=== PATIENT | female | born 1940 | race Caucasian/White ===

== ENCOUNTER → 2016-09-30 | Outpatient (CLI) | payer OTHER ==
[~2016-09-30] MED LIST: ACAMPROSATE CA333 MG PO; ADULT LOW DOSE81 MG PO; AMBIEN 5 MG TABL5 M1 PO; ANTABUSE250 M1 PO; ASPIR 8181 MG PO; CALCIUM 600 +1 EAC1 PO; CELEXA 20 MG TA20 M1 PO; COLACE100 MG PO; ENDOCET 5-3251 EACH PO; ENOXAPARIN40 MG/0.1 SUBQ; K-DUR 20 MEQ T20 MEQ PO; LEVOTHYROXINE0.05 MG PO; MIRALAX17 GM PO; OMEPRAZOLE 20 M20 M1 PO; PERCOCET 5-3251 EACH PO; PHENERGAN 25 MG25 M1 PO; PROMS25 WY RECTAL; PROPRANOLOL 1010 MG PO; PROTONIX40 M2 PO; PROTONIX40 M4 PO; SENNA CONCENTR8.6 MG PO; SENNA8.6 MG PO; SENOKOT-S1 TA1 PO; TYLENOL325 MG PO; VITAMINC500 PO; ZOFRAN4 MG PO
== END ==
LOC: ULTRA 07:32
DX: R79.89 Other specified abnormal findings of blood chemistry (principal); M79.89 Other specified soft tissue disorders; M79.604 Pain in right leg; M79.605 Pain in left leg

== ENCOUNTER → 2016-11-18 | Outpatient (CLI) | payer OTHER ==
[2016-11-18 08:14] LABS: CREATININE 0.8 mg/dL (0.6-1.0)
== END ==
LOC: CAT 07:16
PROVIDERS: Family Medicine
DX: K70.30 Alcoholic cirrhosis of liver without ascites (principal); R06.02 Shortness of breath; R79.1 Abnormal coagulation profile

== ENCOUNTER → 2016-12-16 | Outpatient (CLI) | payer OTHER ==
[~2016-12-16] VITALS: Ht 167.6 cm; Wt 72.6 kg
[~2016-12-16] MED LIST changes: +ALDACTONE50 MG PO; +LACTULOSE10 GM/152 PO
--- NOTE | ~2016-12-16 | P ---
[facility] [place] [address] PROCEDURE REPORT Name: OLIVIA BRADLEY Room #: REG [facility]#: [id number] Admission: 12/16/16 Attend Phys: Chapo Montoya MD Discharge: Date of : 39 Report #: [id number] THIS REPORT FOR: //name// CC: Chapo Peraza MD OUTPATIENT UPPER ENDOSCOPY DATE OF SERVICE: 12/16/2016. BRIEF HISTORY: The patient is a 76-year-old woman with known cirrhosis of liver and portal hypertension with a history of esophageal varices diagnosed in 2016. She presents today for surveillance of esophagus for esophageal varices and potential banding. PREOPERATIVE DIAGNOSIS: 1. Portal hypertension. 2. Esophageal varices. POSTOPERATIVE DIAGNOSES: 1. Grade 1-2 distal esophageal varices. 2. Small hiatus hernia. 3. Erythematous gastritis. MEDICATIONS: Deep sedation with propofol per anesthesia. SPECIMEN: None. ESTIMATED BLOOD LOSS: None. PROCEDURE: Esophagogastroduodenoscopy. FINDINGS: Prior to propofol sedation, procedure of upper endoscopy discussed with the patient as well as potential risks and its complications. She indicates she understands and desires to proceed. DESCRIPTION OF PROCEDURE: With the patient in left lateral decubitus position, the Fuji video endoscope was inserted in the cervical esophagus under direct vision without difficulty. Examination of this organ through its entire length revealed normal esophageal mucosa in the proximal esophagus distally, as we advanced the scope, she was noted to have varices in the distal esophagus, with the most part, the varices a grade 1. However, right at the GE junction, there were 2 columns that I would consider grade 2 but these were apparently short varices. It was felt that, that they were not amenable to banding at this point in time. They are best seen when air was suctioned from the esophagus. However, the esophagus fully distended, they were barely perceptible. There is no [facility] [address] [address] PROCEDURE REPORT Name: OLIVIA BRADLEY Room #: REG [facility]#: [id number] Admission: 12/16/16 Attend Phys: Chapo Montoya MD Discharge: Date of : 39 Report #: [id number] evidence of bleeding. In addition, a small hiatus hernia was seen. The mucosa in the hernia was normal. Scope was advanced in the stomach, which was examined on end view as well as retroflexed views. There was linear erythema in the antrum of stomach, no ulcers were seen. Upon retroflexion, the hiatus hernia was seen, no mass lesions were seen. The stomach was fully insufflated with air. There was good flattening of the gastric folds and gastric varices were not identified. At that point, the scope was slowly withdrawn and careful circumferential views confirmed the above findings. The patient tolerated the procedure well. CONDITION OF THE PATIENT UPON DISCHARGE: Following procedure, the patient drowsy, aroused, conversant and will be discharged home when fully ambulatory. INSTRUCTIONS TO THE PATIENT AND FAMILY AT THE TIME OF DISCHARGE: She does have varices and they are fairly small this point in time and felt not be amenable to banding. She will continue her current treatment with Aldactone, lactulose, and she may need furosemide if needed. We will have her return, she has an appointment in the office in several weeks. Suggest she return in 1 year for surveillance endoscopy for evaluation of her esophageal varices. <ELECTRONICALLY SIGNED> By: Chapo Montoya MD 12/17/16 1151 0859 1127 Chapo Montoya MD /nt
== END ==
LOC: GI 07:24 → EDSTATUS 09:08
DX: I85.10 Secondary esophageal varices without bleeding (principal); K76.6 Portal hypertension; K29.60 Other gastritis without bleeding; K44.9 Diaphragmatic hernia without obstruction or gangrene; F32.9 Major depressive disorder, single episode, unspecified; K21.9 Gastro-esophageal reflux disease without esophagitis; M19.90 Unspecified osteoarthritis, unspecified site; K74.60 Unspecified cirrhosis of liver
CPT/HCPCS: 62110; 62900

== ENCOUNTER 2017-03-19 13:56 | Inpatient (IN) | payer OTHER ==
[~2017-03-19] VITALS: Ht 167.6 cm; Wt 77.1 kg
--- NOTE | ~2017-03-19 | EKG ---
[place] [address] [address] [place] [address] ELECTROCARDIOGRAM REPORT Name: OLIVIA BRADLEY Room #: 432-P ADM IN M.R.#: [id number] Admission: 03/19/17 Attend Phys: Zuri Garza Discharge: Date of : 39 Report #: [id number] THIS REPORT FOR: //name// [facility] ED Test Date: 2017-03-19 Test Time: 15:01:18 Pat Name: OLIVIA BRADLEY Department: Room: [facility] Gender: F Academic Affairs Dean: DENNISE : 1940 Requested By: Yamila Gonzalez Order Number: [id number] MD: Spike Ramos Measurements Intervals [place] Rate: 68 P: 40 MO: 176 QRS: -3 QRSD: 102 T: 35 QT: 442 QTc: 471 Interpretive Statements Sinus rhythm Probable left atrial enlargement Low voltage, precordial leads Compared to ECG 07/13/2015 11:59:20 No significant change Electronically Signed On 03-20-2017 10:53:11 CDT by Spike Ramos [email or web address] <ELECTRONICALLY SIGNED> By: Spike Ramos MD 03/20/17 1053 1501 1501 Spike Ramos MD /CANDIDA
--- NOTE | ~2017-03-19 | HC ---
[facility] [place] [address] CONSULTATION Name: OLIVIA BRADLEY Room #: 432-P ADM IN M.R.#: [id number] Admission: 03/19/17 Attend Phys: Zuri Garza Discharge: Date of : 39 Report #: [id number] THIS REPORT FOR: //name// CC: Zuri Peraza MD DATE OF SERVICE: 03/20/2017 HISTORY OF PRESENT ILLNESS: The patient is a 77-year-old female with a history of cirrhosis who was admitted yesterday with complaints of generalized weakness, fatigue, episode of dizziness. She was noted to have an elevated ammonia level on admission. She does take lactulose, but once a day at home. Her ammonia level yesterday was 36, today is 83. Lactulose has now been increased to 4 times a day. She denies any abdominal pain. She was also anemic with a hemoglobin of 9, although she states she has always been anemic and that is her normal baseline range. She denies any obvious melena or bright red blood per rectum. She states she had an EGD by my partner, Dr. Montoya who follows her, last month. I do not have a copy of those results. She also reportedly had a colonoscopy approximately 3 months ago, in which polyps were removed. She denies any abdominal pain. She denies any chest pain or shortness of breath. No fevers or chills at this time. She has a history of alcohol abuse, but last use was a year ago. PAST MEDICAL HISTORY: History of cirrhosis, previous history of alcohol abuse, anemia, ankle fracture, history of depression, hysterectomy, gastroesophageal reflux disease, arthritis. ALLERGIES: CODEINE, MORPHINE, ENTEX. REVIEW OF SYSTEMS: As per HPI. MEDICATIONS ON ADMISSION: Protonix, calcium, Celexa, Synthroid, Inderal, Aldactone and lactulose. SOCIAL HISTORY: Previous history of alcohol abuse, last drink a year ago. She denies any tobacco use. FAMILY HISTORY: Negative for colon cancer. PHYSICAL EXAMINATION: VITAL SIGNS: Temperature is 37.0, pulse 65, blood pressure is 98/47, respiratory rate is 16. GENERAL: She is alert and oriented x 3 in no acute distress. HEENT: Sclerae are nonicteric. Oropharynx is clear. [address] [address] CONSULTATION Name: OLIVIA BRADLEY Room #: 432-P [facility] IN M.R.#: [id number] Admission: 03/19/17 Attend Phys: Zuri Garza Discharge: Date of : 39 Report #: [id number] NECK: Supple without lymphadenopathy. CARDIOVASCULAR: Regular rate and rhythm. CHEST: Clear to auscultation bilaterally. ABDOMEN: Soft. She is nontender, nondistended, normoactive bowel sounds. EXTREMITIES: Trace edema in the lower extremities bilaterally. LABORATORY DATA: Sodium 139, potassium 4.3, chloride 109, bicarbonate 21, BUN 24, creatinine 1.4. Ammonia level is 83. Albumin 2.9. WBC 4.6, hemoglobin 9.0, MCV 79.7, platelet count is 108. UA is nitrite positive, wbc's 6-15, 2+ leukocyte esterase. ASSESSMENT AND PLAN: 1. History of cirrhosis, previous history of alcohol abuse. The patient with recent generalized fatigue, weakness. This may be secondary to elevated ammonia level. Agree with increasing lactulose, which has now been increased to 4 times daily, would repeat ammonia level tomorrow. 2. Anemia. There are no obvious signs of bleeding. She denies any melena or bright red blood per rectum. Reportedly had an esophagogastroduodenoscopy and colonoscopy in the last few months. We will need to obtain copies of these results. We will Hemoccult test stools and monitor hemoglobin at this time. 3. Urinary tract infection. The patient is currently on an antibiotic. Thank you for allowing me to participate in her care. <ELECTRONICALLY SIGNED> By: Timo Odell MD 03/21/17 1151 1124 2211 Timo Odell MD /nt
[2017-03-19 13:57] VITALS: BP 113/45
[2017-03-19 14:40] LABS: URINE BILIRUBIN NEGATIVE (Negative); URINE BLOOD NEGATIVE (Negative); URINE COLOR YELLOW; URINE GLUCOSE-RANDOM* NEGATIVE (Negative); URINE KETONES NEGATIVE (Negative); URINE NITRITE POSITIVE (Negative); URINE PROTEIN (DIPSTICK) NEGATIVE (Negative)
[2017-03-19 14:52] LABS: BACTERIA 1-9 Few /HPF (None Seen); CASTS None Seen /LPF (None Seen); CRYSTALS None Seen /LPF (None Seen); SQUAMOUS 0-3 Few /LPF (0-3); URINE RBC None Seen /HPF (0-2); URINE WBC 6-15 Few /HPF (0-5)
[2017-03-19 15:03] LABS: ABSOLUTE NEUTROPHILS 2.4 thou/uL (1.4-8.2); BASOPHILS 0.5 % (0.0-2.0); HEMATOCRIT 27.4 % (37.0-47.0); LYMPHOCYTES 32.3 % (24.0-44.0); MANUAL DIFF NO; MCH 26.3 pg (26.0-34.0); MCV 79.7 fL (80.0-100.0); MONOCYTES 8.6 % (1.0-8.0); PLATELET COUNT 108 thou/uL (150-400); POLYS 52.6 % (36.0-66.0); RBC 3.44 mil/uL (4.20-5.00); RDW 19.4 % (10.5-14.5); WBC 4.6 thou/uL (4.0-11.0)
[2017-03-19 15:12] LABS: ANION GAP 12 mmol/L (7-16); BUN 31 mg/dL (7-18); CALCIUM 9.2 mg/dL (8.5-10.1); CHLORIDE 108 mmol/L (98-107); CO2 20 mmol/L (21-32); CREATININE 1.6 mg/dL (0.6-1.0); GLUCOSE 147 mg/dL (74-106); POTASSIUM 4.6 mmol/L (3.5-5.1); SODIUM 140 mmol/L (136-145)
[2017-03-19 15:21] LABS: ALBUMIN 3.2 g/dL (3.4-5.0); ALKALINE PHOSPHATASE 83 U/L (46-116); SGOT 32 U/L (15-37); SGPT 22 U/L (30-65); TOTAL BILIRUBIN 1.6 mg/dL (<0.1-1.0); TROPONIN-I < 0.04 ng/mL (<0.04-0.07)
[2017-03-19 16:03] VITALS: BP 111/68
[2017-03-19 16:35] VITALS: BP 113/67
[2017-03-19] MEDS ORDERED: LASIX 20 MG TAB20 MG PO (16:50)
[2017-03-19] MEDS ORDERED: PHENERGAN 25 MG25 M1 PO (16:50)
[2017-03-19 20:00] VITALS: BP 105/46
[2017-03-20 04:14] VITALS: BP 90/44
[2017-03-20 06:22] LABS: ALBUMIN 2.9 g/dL (3.4-5.0); CALCIUM 8.6 mg/dL (8.5-10.1); CREATININE 1.4 mg/dL (0.6-1.0); PHOSPHORUS 4.2 mg/dL (2.5-4.9); POTASSIUM 4.3 mmol/L (3.5-5.1)
[2017-03-20 07:40] VITALS: BP 98/47
[2017-03-20 15:05] VITALS: BP 101/52
[2017-03-20 19:50] VITALS: BP 110/54
[2017-03-21 04:41] VITALS: BP 105/56
[2017-03-21 07:00] LABS: ALBUMIN 2.7 g/dL (3.4-5.0); CALCIUM 8.6 mg/dL (8.5-10.1); PHOSPHORUS 3.3 mg/dL (2.5-4.9); POTASSIUM 4.6 mmol/L (3.5-5.1)
[2017-03-21 08:00] VITALS: BP 118/62
[2017-03-21 08:19] VITALS: BP 118/62
[2017-03-21 16:00] VITALS: BP 102/45
[2017-03-21 20:00] VITALS: BP 109/56
[2017-03-22 04:00] VITALS: BP 120/61
[2017-03-22 04:42] LABS: ALBUMIN 2.5 g/dL (3.4-5.0); CALCIUM 8.6 mg/dL (8.5-10.1); CREATININE 0.9 mg/dL (0.6-1.0); POTASSIUM 4.1 mmol/L (3.5-5.1); TOTAL BILIRUBIN 0.8 mg/dL (<0.1-1.0); TOTAL PROTEIN 5.9 g/dL (6.4-8.2)
[2017-03-22 07:12] VITALS: BP 103/53
[2017-03-22] MEDS ORDERED: LACTULOSE20 GM/30 M PO (09:22)
[2017-03-22 09:55] VITALS: BP 103/53
== END 2017-03-22 14:30 | disposition home or self-care (01) | DRG 441 ==
LOC: ER 13:56 → EROBS 15:59 → 4E 15:59 → ENTRNSPT 03-22 14:21 → EDTRNSPTSTS 03-22 14:24 → 4E 03-22 14:30
PROVIDERS: Hospitalist; Physician Assistant
DX: K72.90 Hepatic failure, unspecified without coma (principal); N17.0 Acute kidney failure with tubular necrosis; N39.0 Urinary tract infection, site not specified; K76.6 Portal hypertension; I85.00 Esophageal varices without bleeding; K21.9 Gastro-esophageal reflux disease without esophagitis; M19.90 Unspecified osteoarthritis, unspecified site; F32.9 Major depressive disorder, single episode, unspecified; D64.9 Anemia, unspecified; F10.10 Alcohol abuse, uncomplicated; Y90.9 Presence of alcohol in blood, level not specified; K70.30 Alcoholic cirrhosis of liver without ascites; K29.60 Other gastritis without bleeding; Z90.710 Acquired absence of both cervix and uterus; Z98.42 Cataract extraction status, left eye; Z98.41 Cataract extraction status, right eye; Z88.6 Allergy status to analgesic agent; Z88.8 Allergy status to other drugs, medicaments and biological substances
CPT/HCPCS: 10084

== ENCOUNTER 2017-09-24 14:40 | Inpatient (IN) | payer OTHER ==
[~2017-09-24] VITALS: Ht 167.6 cm; Wt 76.7 kg
--- NOTE | ~2017-09-24 | HC ---
[facility] [place] [address] CONSULTATION Name: MIRNAOLIVIA Joseph Room #: 220-P [facility] IN M.R.#: [id number] Admission: 09/24/17 Attend Phys: Kike Singletary MD Discharge: 09/27/17 Date of : 39 Report #: [id number] THIS REPORT FOR: //name// CC: Kike Peraza DATE OF SERVICE: 09/25/2017 HISTORY OF PRESENT ILLNESS: This is a 77-year-old female patient who indicates that she is having some difficulty with ambulation about 1 weeks' duration. This is a different history than the patient gave it to Emergency Room physician. There she indicated that she felt dizzy the day before. Her handwriting has also deteriorated for 1 week and she has some nonspecific shaking associated with it, which happened without any lack of consciousness. Her mentation has been slow. She does have a history of alcoholism, but this patient has not has any alcohol for 2 years according to her. Review of systems indicates that she had these kinds of symptoms in the past, but they become better. She does not know what bring them on and what makes them better. She used to drink alcohol heavily, but says she has been done for 2 year. She has a history of hysterectomy and cirrhosis. She had a history of cataract surgery and depression. She had ankle fracture. She denies any history of stroke or seizure. She takes multiple medications including the medication for depression. She denies that there are any new visual symptoms. She denies any chest pain or any new respiratory difficulty, GI, , musculoskeletal, constitutional, dermatological, hematological, throat, allergic, endocrine symptom associated with present symptomatology. She does have a history of depression, but does not feel depressed. Her 14-point review of system was otherwise noncontributory. PAST MEDICAL HISTORY: Positive for cirrhosis and similar symptoms. More detail of that is not there. FAMILY HISTORY: Negative for any hereditary ataxia. SOCIAL HISTORY: She has a history of drinking alcohol, but has not done it for 2-year. PHYSICAL EXAMINATION: Indicate that she is alert, she is responsive, she is oriented to me. Her speech, concentration, fund of knowledge looks what she described as her baseline. She is able to tell me the month, what hospital she is in, and who is the president. Cranial nerve examination 2-12 looks unremarkable. She moves all four extremities. She is somewhat weak in all 4 extremities. Her reflexes are present even in the lower extremities. Her position sense is intact. Her tone looks symmetrical. She can do [id number]. I could not have a very good look at the patient's fundus. She [facility] [address] [place] [address] CONSULTATION Name: OLIVIA BRADLEY Room #: 220-P DIS IN M.R.#: [id number] Admission: 09/24/17 Attend Phys: Kike Singletary MD Discharge: 09/27/17 Date of : 39 Report #: [id number] is moderately built individual. She does not have any dysmorphic features of eyes, ears or face. Her vision and hearing looks adequate. Her pulses are difficult to feel and I do not think there is much edema, cyanosis or jaundice. Cardiac examination is mostly unremarkable. No respiratory difficulty or rhonchi on either side. Her blood pressure is 112/43, respirations 16, pulse is 73, temperature is 98.3. LABORATORY DATA: Indicate that she is anemic with hemoglobin of 10.5. Her GFR is only 43. IMPRESSION: This patient looks like had a CT angiogram in the Emergency Room. Her GFR was 36 and today it is 43 and does not look like that has changed much. 1. This patient has a suggestion of lesion on the left side. If that lesion is real and acute that can explain at least part of the patient's symptoms. We had ordered an MRI, but MRI is not done yet and we will await the MRI. 2. It is possible that part of her symptoms is secondary to hepatic encephalopathy because her ammonia level was high. I will go ahead and give some time and looks like she got some lactulose. 3. It looks like she did have a CT angiogram in the Emergency Room. Her GFR is stable and in fact has improved since yesterday. Hospitalist/plant specialist is already following this patient in that regard. RECOMMENDATIONS: 1. I will check the MRI. 2. I will check the EEG. 3. These are the 2 things I recommended and we will see what it shows. 4. We will get the patient on PT/OT. 5. We will see if the patient improve and if she improves, she may not have to do anything. If she does not, then the further workup will be indicated in this patient. I discussed all of it with the patient and she understands it and she wants to follow this plan. Thank you very much for this referral. <ELECTRONICALLY SIGNED> By: Dexter Alva MD 10/06/17 1355 1605 4847 Dexter Alva MD /nt
--- NOTE | ~2017-09-24 | EKG ---
[place] [address] [facility] [place] [address] ELECTROCARDIOGRAM REPORT Name: OLIVIA BRADLEY Room #: 354-P ADM IN M.R.#: [id number] Admission: 09/24/17 Attend Phys: Kike Singletary MD Discharge: Date of : 39 Report #: [id number] THIS REPORT FOR: //name// [facility] ED Test Date: 2017-09-24 Test Time: 15:16:07 Pat Name: OLIVIA BRADLEY Department: Room: [facility] Gender: F Technical Photographer: FRANKIE : 1940 Requested By: Nan Kent Order Number: [id number] MD: Brandyn Draper Measurements Intervals [place] Rate: 81 P: 40 [place]: 170 QRS: -18 QRSD: 96 T: 11 QT: 399 QTc: 464 Interpretive Statements Sinus rhythm Borderline left axis deviation Poor R wave progression Compared to ECG 03/19/2017 15:01:18 No significant changes Electronically Signed On 09-25-2017 13:45:40 CDT by Brandyn Draper [email or web address] <ELECTRONICALLY SIGNED> By: Brandyn Draper MD, [facility] 09/25/17 1345 1516 1516 Brandyn Draper MD, [facility] /EPI
--- NOTE | ~2017-09-24 | EEG ---
[facility] [place] [address] ELECTROENCEPHALOGRAM Name: OLIVIA BRADLEY Room #: 220-P [facility] IN M.R.#: [id number] Admission: 09/24/17 Attend Phys: Kike Singletary MD Discharge: 09/27/17 Date of : 39 Report #: [id number] THIS REPORT FOR: //name// CC: Kike Peraza DATE OF SERVICE: 09/25/2017 This patient is being evaluated for altered mental status. EEG was done by placing the electrodes by standard 10-20 system of electrode placement. Both referential and sequential montages were used for recording. Background activity in this patient's EEG is about 9-10 Hz and 30-40 microvolts. This patient went to sleep that is associated with bilateral slowing and vertex sharp waves. Even when the patient is awake, some intermixed theta range slowing is noticed. Photic stimulation is unremarkable. Throughout the record, no active epileptiform activity was noticed. IMPRESSION: This patient's EEG is intermixed with some theta range slowing. That is a nonspecific finding, which can occur with encephalopathy, effect of psychotropic medication, dementia, etc. No active epileptiform activity was noticed during this record. Thank you very much for this referral. <ELECTRONICALLY SIGNED> By: Dexter Alva MD 10/06/17 1906 1601 1609 MD floresita Singleton
--- NOTE | ~2017-09-24 | H ---
[facility] [place] [address] HISTORY AND PHYSICAL Name: OLIVIA BRADLEY Room #: 220-P [facility] IN M.R.#: [id number] Admission: 09/24/17 Attend Phys: Kike Singletary MD Discharge: 09/27/17 Date of : 39 Report #: [id number] THIS REPORT FOR: //name// CC: Kike Peraza REASON FOR CONSULTATION: Unsteadiness. HISTORY OF PRESENT ILLNESS: The patient is a 77-year-old with extensive past medical history including and not limited to cirrhosis. She presented describing unsteadiness and wobbly feeling since last night. No falls. No headaches, no fever, no chills. She lives with her . She has felt difficulty finding the words. She also describes some shaky feeling. Her describes slow mental processing and thought process in the last 24 hours. She was supposed to see her primary care physicians, but because of the worsening symptoms, she decided for further evaluation and management. She is not known to have hypertension or diabetes mellitus. She is maintained on cirrhosis medications including Lasix, spironolactone, propranolol. She is also known to have hypothyroidism. She had a similar presentation back in 2017. She never had issues with strokes in the past. She is known to have had extensive GI workup revealing esophageal varices in the past. Initial scans revealed a possible acute ischemic infarct and she is admitted for further evaluation and management. PAST MEDICAL HISTORY: 1. Cirrhosis. 2. Esophageal varices. 3. Remote history of alcohol dependence. 4. Status post hysterectomy. 5. Cataract surgery. 6. Tonsillectomy. 7. Depression. 8. Hiatal hernia. MEDICATIONS: 1. Pantoprazole. 2. Furosemide. 3. Celexa. 4. Levothyroxine 50 mcg. 5. Propranolol 10 mg twice a day. 6. Spironolactone. ALLERGIES: CODEINE, MORPHINE, PSEUDOEPHEDRINE, PHENYLEPHRINE. SOCIAL HISTORY: No drug or alcohol abuse. She is a retired RN. The last time she used alcohol was back in 2016. [facility] [address] [place] [address] HISTORY AND PHYSICAL Name: OLIVIA BRADLEY Room #: 220-P [facility] IN .R.#: [id number] Admission: 09/24/17 Attend Phys: Kike Singletary MD Discharge: 09/27/17 Date of : 39 Report #: [id number] REVIEW OF SYSTEMS: GENERAL: Significant for weakness and malaise. PULMONARY: No cough or hemoptysis. CARDIOVASCULAR: No chest pain or palpitation. GASTROINTESTINAL: No nausea or vomiting. GENITOURINARY: No frequency, no urgency. MUSCULOSKELETAL: No back pain. No muscle aches. SKIN: No rash or ulcerations. NEUROLOGIC: As per the history of present illness. FAMILY HISTORY: Her mom of lung cancer. Dad of a car accident. PHYSICAL EXAMINATION: GENEAL: She is alert and oriented. VITAL SIGNS: Blood pressure was reported to be at 110/60. Pulse ox 99, temperature 36.7, respiratory rate 18. HEAD AND NECK: No jugular venous distention, no bruit, no thyromegaly. CHEST: Clear to auscultation. CARDIOVASCULAR: Regular with no rub. ABDOMEN: Soft, nontender. LOWER EXTREMITIES: No edema. NEUROLOGIC: She is somewhat sluggish. No gross deficit. She seems to have difficulty finding the words. No gross cranial nerve deficit. CT reviewed. LABORATORY DATA: Reviewed. She has an MCV of 77.5, platelet of 124, carbon dioxide of 20, mildly elevated total bilirubin, mildly elevated ammonia. ASSESSMENT, IMPRESSION AND PLAN: 1. Unsteadiness of unknown origin. 2. Abnormal CT of the left periventricular frontal region with decreased attenuation, cannot rule out ischemia. 3. Liver cirrhosis. 4. Thrombocytopenia. 5. Anemia. 6. Hypothyroidism. 7. Admission. 8. Neurology consultation. 9. MRI in the morning. 10. Resume all of [place] [address] HISTORY AND PHYSICAL Name: OLIVIA BRADLEY Room #: 220-P [facility] IN ..#: [id number] Admission: 09/24/17 Attend Phys: Kike Singletary MD Discharge: 09/27/17 Date of : 38 Report #: [id number] 11. Further workup based on the MRI tomorrow. 12. Watch hemoglobin and platelets. <ELECTRONICALLY SIGNED> By: Kike Singletary MD 10/10/17 0637 1738 1759 Kike Singletary MD /nt
--- NOTE | ~2017-09-24 | HC ---
[facility] [place] [address] CONSULTATION Name: OLIVIA BRADLEY Room #: 220-P ADM IN M.R.#: [id number] Admission: 09/24/17 Attend Phys: Kike Singletary MD Discharge: Date of : 39 Report #: [id number] THIS REPORT FOR: //name// CC: Kike Billsbanner INFECTIOUS DISEASE CONSULTATION REASON FOR CONSULTATION: I was asked to evaluate regarding bacteremia in the setting of cirrhosis. HISTORY OF PRESENT ILLNESS: The patient is a 77-year-old with a history of cirrhosis and varices. She has a compensated disease. She noticed acute change in mental status with unsteadiness the day of admission. She was brought in with mild confusion and mental slowing along with unsteadiness. Her cirrhosis is controlled on lactulose, spironolactone, propranolol. She also takes rifaximin. She has had no ascites, but has had esophageal varices. Following admission on 09/24/2017, she has improved. Her unsteadiness has improved. No fever, chills or sweats. No cough or sputum production. No headache. No nausea, vomiting or diarrhea. No dysuria or frequency. No rash. ALLERGIES: CODEINE, MORPHINE, PSEUDOEPHEDRINE, PHENYLEPHRINE. MEDICATIONS: Pantoprazole, Lasix, Celexa, levothyroxine, propranolol, spironolactone, rifaximin p.r.n., lactulose. After admission, she was given a dose of ceftriaxone and vancomycin. PAST MEDICAL HISTORY: Cirrhosis, esophageal varices, alcoholism, hysterectomy, cataract surgery, tonsillectomy, depression, hiatal hernia. FAMILY HISTORY: Lung cancer. SOCIAL HISTORY: Nonsmoker, retired RN. REVIEW OF SYSTEMS: Noted above. PHYSICAL EXAMINATION: VITAL SIGNS: Afebrile, hemodynamically stable. GENERAL: She was alert and cooperative and pleasant, in no acute distress. HEENT: Unremarkable. NECK: Supple. No adenopathy. CHEST: Clear. HEART: Regular without murmur. ABDOMEN: Soft and nontender. No hepatosplenomegaly or mass appreciated. SKIN: Occasional telangiectasia on her chest. [facility] [address] [place] [address] CONSULTATION Name: OLIVIA BRADLEY Room #: 220-P [facility]#: [id number] Admission: 09/24/17 Attend Phys: Kike Singletary MD Discharge: Date of : 39 Report #: [id number] EXTREMITIES: Unremarkable. She had onychomycosis of her right great toenail. LABORATORY STUDIES: Sodium 138, potassium 4.5, bicarbonate 21, creatinine 1.2. AST 41, ALT 33, alkaline phosphatase 77, bilirubin 1.3. INR 1.3. Hemoglobin 10.9, platelet count 79,000, WBC 5.2. Chest x-ray was clear. MRI scan of the head showed atrophy with no acute changes. Blood cultures 1 out of 2 cultures showing coag negative Staph. IMPRESSION: A 77-year-old with cirrhosis and unsteadiness. Unclear if this is related to her underlying liver disease or if she had transient ischemia issue. The coag negative Staph in the blood currently appears to be a contaminant. We will need to await final culture results. We will obtain identification of the organism. The patient has received one dose of vancomycin. With no fever or leukocytosis, we will plan to discontinue her antibiotics and observe. <ELECTRONICALLY SIGNED> By: Miguel Ángel Diaz MD 09/27/17 0831 1405 1425 Miguel Ángel Diaz MD /nt
[~2017-09-24 14:40] MED LIST changes: +LACTULOSE20 GM/30 M PO; +LASIX 20 MG TAB20 MG PO
[2017-09-24 15:50] LABS: HEMATOCRIT 34.6 % (37.0-47.0); HEMOGLOBIN 11.3 gm/dL (12.0-15.0); MCH 25.3 pg (26.0-34.0); MCHC 32.6 g/dL (28.0-37.0); MCV 77.5 fL (80.0-100.0); PLATELET COUNT 124 thou/uL (150-400); RBC 4.47 mil/uL (4.20-5.00); RDW 34.4 % (10.5-14.5); WBC 6.2 thou/uL (4.0-11.0)
[2017-09-24 15:55] LABS: ANION GAP 13 mmol/L (7-16); BUN 18 mg/dL (7-18); CALCIUM 9.6 mg/dL (8.5-10.1); CHLORIDE 108 mmol/L (98-107); CO2 20 mmol/L (21-32); CREATININE 1.4 mg/dL (0.6-1.0); GLUCOSE 135 mg/dL (74-106); POTASSIUM 4.9 mmol/L (3.5-5.1); SODIUM 141 mmol/L (136-145)
[2017-09-24 15:56] LABS: URINE BILIRUBIN NEGATIVE (Negative); URINE BLOOD 2+ (Negative); URINE CLARITY CLEAR; URINE COLOR YELLOW; URINE GLUCOSE-RANDOM* NEGATIVE (Negative); URINE KETONES NEGATIVE (Negative); URINE LEUKOCYTES 1+ (Negative); URINE NITRITE NEGATIVE (Negative); URINE PROTEIN (DIPSTICK) NEGATIVE (Negative); URINE SPECIFIC GRAVITY 1.015 (1.005-1.035); URINE UROBILINOGEN 0.2 E.U./dl (0.2-1.0)
[2017-09-24 16:01] LABS: HYALINE CASTS 0-3 Few /LPF (None Seen); SQUAMOUS 4-10 Moderate /LPF (0-3)
[2017-09-24 16:01] LABS: BE(vivo) -8.6 mmol/L (-2 to +3); HCO3 17.3 mmol/L (22.0-26.0); PCO2 VENOUS 37.5 mmHg (41.0-51.0)
[2017-09-24 16:02] LABS: AMP/METHAMP Negative (Negative); BACTERIA 1-9 Few /HPF (None Seen); BARBITURATES Negative (Negative); BENZODIAZEPINES Negative (Negative); COCAINE Negative (Negative); CRYSTALS None Seen /LPF (None Seen); METHADONE Negative (Negative); OPIATES Negative (Negative); PCP Negative (Negative); URINE RBC 3-10 Few /HPF (0-2); URINE WBC 6-15 Few /HPF (0-5)
[2017-09-24 16:04] LABS: ALBUMIN 3.2 g/dL (3.4-5.0); SGOT 47 U/L (15-37); SGPT 37 U/L (30-65); TOTAL BILIRUBIN 2.1 mg/dL (<0.1-1.0); TROPONIN-I < 0.04 ng/mL (<0.06)
[2017-09-24 16:10] LABS: ABSOLUTE NEUTROPHILS 2.9 thou/uL (1.4-8.2); ANISOCYTOSIS 2+; MICROCYTES 2+; PLATELET ESTIMATE NORMAL
[2017-09-24 17:44] LABS: APTT 29.6 Seconds (24.5-32.8); INR 1.3; PROTIME 12.9 Seconds (9.3-11.4)
[2017-09-24 18:53] VITALS: BP 139/70
[2017-09-24 19:08] VITALS: BP 133/50
[2017-09-25] VITALS (7 sets, daily range): BP systolic 96–116; BP diastolic 41–51
[2017-09-25 07:01] LABS: HEMATOCRIT 31.4 % (37.0-47.0); HEMOGLOBIN 10.5 gm/dL (12.0-15.0); MCH 25.8 pg (26.0-34.0); MCHC 33.4 g/dL (28.0-37.0); MCV 77.1 fL (80.0-100.0); RBC 4.08 mil/uL (4.20-5.00); RDW 34.4 % (10.5-14.5); WBC 4.9 thou/uL (4.0-11.0)
[2017-09-25 07:20] LABS: ALBUMIN 2.7 g/dL (3.4-5.0); CREATININE 1.2 mg/dL (0.6-1.0); POTASSIUM 4.5 mmol/L (3.5-5.1); TOTAL BILIRUBIN 1.3 mg/dL (<0.1-1.0); TOTAL PROTEIN 6.1 g/dL (6.4-8.2)
[2017-09-25 07:51] LABS: FOLIC ACID 18.5 ng/mL (8.6-58.9); TSH 0.289 uIU/mL (0.358-3.740)
[2017-09-25 10:39] LABS: CHOLESTEROL 122 mg/dL (<200); HDL CHOLESTEROL 42 mg/dL (>40); LDL CHOLESTEROL 68 mg/dL (<100); SERUM ASSESSMENT Clear; TC:HDL 2.9 Ratio (Not establshd); TRIGLYCERIDE 64 mg/dL (<150); VLDL 13 mg/dL (<40)
[2017-09-26 03:30] VITALS: BP 100/39
[2017-09-26 05:53] LABS: HEMOGLOBIN 10.9 gm/dL (12.0-15.0); MCH 25.5 pg (26.0-34.0); MCV 77.4 fL (80.0-100.0); RBC 4.26 mil/uL (4.20-5.00); RDW 34.4 % (10.5-14.5); WBC 5.2 thou/uL (4.0-11.0)
[2017-09-26 07:28] VITALS: BP 106/52
[2017-09-26 12:16] VITALS: BP 99/45
[2017-09-26 20:30] VITALS: BP 118/52
[2017-09-27 07:47] VITALS: BP 120/65
[2017-09-27 07:52] LABS: ABSOLUTE NEUTROPHILS 1.9 thou/uL (1.4-8.2); BASOPHILS 0.3 % (0.0-2.0); EOSINOPHILS 6.7 % (0.0-3.0); HEMATOCRIT 33.3 % (37.0-47.0); LYMPHOCYTES 42.4 % (24.0-44.0); MCH 25.5 pg (26.0-34.0); MCHC 33.2 g/dL (28.0-37.0); MCV 76.9 fL (80.0-100.0); MONOCYTES 10.9 % (1.0-8.0); POLYS 39.7 % (36.0-66.0); RBC 4.33 mil/uL (4.20-5.00); RDW 33.6 % (10.5-14.5); WBC 4.8 thou/uL (4.0-11.0)
[2017-09-27 07:58] LABS: CALCIUM 9.4 mg/dL (8.5-10.1); CREATININE 1.1 mg/dL (0.6-1.0); POTASSIUM 4.6 mmol/L (3.5-5.1)
[2017-09-27 08:21] LABS: ANISOCYTOSIS 1+
[2017-09-27 08:22] LABS: PLATELET COUNT 85 thou/uL (150-400)
[2017-09-27 13:41] VITALS: BP 120/65
[2018-02-22] MEDS ORDERED: LACTULOSE20 GM/30 M PO (14:24)
[2018-02-22] MEDS ORDERED: XIFAXAN550 M1 PO (14:26)
== END 2017-09-27 14:40 | disposition home or self-care (01) | DRG 441 ==
LOC: ER 14:40 → EROBS 17:10 → 3W 17:10 → SICU 09-26 14:10 → ENTRNSPT 09-27 14:16 → EDTRNSPTSTS 09-27 14:20 → SICU 09-27 14:40
PROVIDERS: Hospitalist; Physician Assistant
PROC: 4A00X4Z Measurement of Central Nervous Electrical Activity, External Approach (ICD-10-PCS; principal; 2017-09-26)
DX: K72.90 Hepatic failure, unspecified without coma (principal); E43 Unspecified severe protein-calorie malnutrition; N39.0 Urinary tract infection, site not specified; K21.9 Gastro-esophageal reflux disease without esophagitis; M19.90 Unspecified osteoarthritis, unspecified site; D69.6 Thrombocytopenia, unspecified; D64.9 Anemia, unspecified; E03.9 Hypothyroidism, unspecified; K74.60 Unspecified cirrhosis of liver; F32.9 Major depressive disorder, single episode, unspecified; R26.0 Ataxic gait; Z68.27 Body mass index [BMI] 27.0-27.9, adult; Z87.81 Personal history of (healed) traumatic fracture; Z98.42 Cataract extraction status, left eye; Z98.41 Cataract extraction status, right eye; Z90.49 Acquired absence of other specified parts of digestive tract; Z79.899 Other long term (current) drug therapy; Z88.5 Allergy status to narcotic agent; Z88.8 Allergy status to other drugs, medicaments and biological substances; Z80.1 Family history of malignant neoplasm of trachea, bronchus and lung
CPT/HCPCS: 10879; 15002

== ENCOUNTER → 2017-10-12 | Outpatient (CLI) | payer OTHER | LOC: RAD 06:25 → SPEECH 06:25 → RAD 08:37 → EDSTATUS 09:18 → RAD 09:19 | DX: K80.20 Calculus of gallbladder without cholecystitis without obstruction (principal); K74.60 Unspecified cirrhosis of liver; R13.12 Dysphagia, oropharyngeal phase ==

== ENCOUNTER → 2018-02-24 | Outpatient (CLI) | payer OTHER ==
[~2018-02-24] VITALS: Ht 167.6 cm; Wt 74.8 kg
[~2018-02-24] MED LIST changes: +XIFAXAN550 M1 PO
--- NOTE | ~2018-02-24 | P ---
[facility] [place] [address] PROCEDURE REPORT Name: OLIVIA BRADLEY Room #: REG [facility]#: [id number] Admission: 02/24/18 Attend Phys: Chapo Montoya MD Discharge: Date of : 39 Report #: [id number] THIS REPORT FOR: //name// CC: Chapo Peraza MD DATE OF SERVICE: 02/24/2018 BRIEF HISTORY: The patient is a 78-year-old woman with a known history of cirrhosis of liver and esophageal varices for surveillance of esophageal varices for potential banding. PREOPERATIVE DIAGNOSIS: Esophageal varices. POSTOPERATIVE DIAGNOSES: 1. Grade 1 esophageal varices. 2. Erythematous antral gastritis. 3. Small hiatus hernia. MEDICATIONS: Deep sedation with propofol per anesthesia. SPECIMEN: None. ESTIMATED BLOOD LOSS: None. PROCEDURE: EGD. FINDINGS: Prior to propofol sedation, procedure of upper endoscopy and potential banding of varices was discussed with the patient as well as potential risks, benefits, and complications. She indicates she understands and desires to proceed. DESCRIPTION OF PROCEDURE: With the patient in lateral decubitus position, the Olympus video endoscope was inserted in the cervical esophagus under direct vision without difficulty. Examination of this organ through its entire length revealed normal esophageal mucosa down to the distal esophagus. The GE junction was inspected and it was noted to be intact without evidence of ulcers or erosions or esophagitis. The distal esophagus was then inspected for esophageal varices. Intermittently, grade 1 varices were seen. However, when we inflated the esophagus, they flattened out completely and at that point were not visible. It was felt that these were too small and a band would not hold on these varices because of their size. Stigmata of bleeding was not identified. The scope was advanced and a very small hiatus hernia was encountered. The mucosa in the hernia was unremarkable. The scope was advanced in the stomach, was examined on end view, as well as retroflexed views. There was a pattern of [facility] [address] [place] [address] PROCEDURE REPORT Name: OLIVIA BRADLEY Room #: REG [facility]..#: [id number] Admission: 02/24/18 Attend Phys: Chapo Montoya MD Discharge: Date of : 39 Report #: [id number] patchy erythema in the antrum, but no ulcers or erosions were seen. Upon retroflexion, a small hiatus hernia was seen. No mass lesions were seen. Gastric varices were not seen. The pylorus was unremarkable. The duodenal bulb was unremarkable. The postbulbar and duodenal sweep down to the third portion was unremarkable. At that point, the scope was slowly withdrawn and careful circumferential views confirmed the above findings. The patient tolerated the procedure well. CONDITION OF THE PATIENT UPON DISCHARGE: Following procedure, the patient was drowsy, arousal, and conversant and will be discharged home when fully ambulatory. In the dome. INSTRUCTIONS TO THE PATIENT AND FAMILY AT THE TIME OF DISCHARGE: The patient has early varices, which were deemed to be too small to hold a band. We will have her return in 1 year for repeat endoscopy. We will have her return to see me in followup in the office in about 6 to 8 weeks. She will otherwise return in the care of Dr. Lucio Peraza. <ELECTRONICALLY SIGNED> By: Chapo Montoya MD 02/24/18 1740 [id number] Chapo Montoya MD /nt
== END | disposition home or self-care (01) ==
LOC: GI 06:28
DX: K74.60 Unspecified cirrhosis of liver (principal); I85.10 Secondary esophageal varices without bleeding; K29.70 Gastritis, unspecified, without bleeding; K44.9 Diaphragmatic hernia without obstruction or gangrene; K21.9 Gastro-esophageal reflux disease without esophagitis; M19.90 Unspecified osteoarthritis, unspecified site; D64.9 Anemia, unspecified; F32.9 Major depressive disorder, single episode, unspecified; Z90.710 Acquired absence of both cervix and uterus; Z98.41 Cataract extraction status, right eye; Z98.42 Cataract extraction status, left eye; Z98.890 Other specified postprocedural states; Z79.899 Other long term (current) drug therapy; Z88.8 Allergy status to other drugs, medicaments and biological substances; Z88.6 Allergy status to analgesic agent
CPT/HCPCS: 62110; 62900

== ENCOUNTER → 2018-04-17 | Outpatient (CLI) | payer OTHER | LOC: ULTRA 07:55 | DX: K80.20 Calculus of gallbladder without cholecystitis without obstruction (principal); K70.30 Alcoholic cirrhosis of liver without ascites; R16.1 Splenomegaly, not elsewhere classified ==

== ENCOUNTER → 2019-02-16 | Outpatient (CLI) | payer OTHER ==
[~2019-02-16] VITALS: Ht 170.2 cm; Wt 65.8 kg
[~2019-02-16] MED LIST changes: +SPIRONOLACTONE100 M1 PO
--- NOTE | 2019-02-17 10:48 | P ---
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 She presents for screening for esophageal varices. Last screening was about a year ago. PREOPERATIVE DIAGNOSES: Advanced liver disease with portal hypertension and esophageal varices. POSTOPERATIVE DIAGNOSES: 1. Grade 1 esophageal varices. 2. Small hiatus hernia. 3. Mild diffuse gastritis. 4. Mild Schatzki ring. MEDICATIONS: Deep sedation with propofol per anesthesia. SPECIMENS: None. ESTIMATED BLOOD LOSS: None. PROCEDURE: EGD. FINDINGS: Prior to propofol sedation, the procedure of upper endoscopy and potential banding of varices was discussed with the patient as well as potential risks and its complications. She indicates she understands and desires to proceed. DESCRIPTION OF PROCEDURE: With the patient in left lateral decubitus position, the Olympus video endoscope was inserted in the cervical esophagus under direct vision without difficulty. Examination of this organ through its entire length revealed normal esophageal mucosa down the squamocolumnar junction. In the distal esophagus, she was noted to have fairly visible varices with complete insufflation of the esophageal lumen. The varices were judged to be 1+. There were no stigmata of bleeding. No ulcers or erosions were seen. There was no evidence of Whelan mucosa. She was noted to have a mild Schatzki ring, which was intermittently seen. In addition, there was about a 3 cm sliding type [facility] [address] [place] [address] PROCEDURE REPORT Name: OLIVIA BRADLEY Room #: REG [facility].#: [id number] Admission: 02/16/19 Attend Phys: Chapo Montoya MD Discharge: Date of : 39 Report #: [id number] hiatus hernia. Scope was advanced in the stomach, which was examined on end view as well as retroflexed views. There was a fairly typical appearing gastritis with erythema in the antrum of the stomach. However, no ulcers were seen. Upon examination of the proximal stomach on end view as well as retroflexed views revealed intact mucosa. There was flattening of folds and no endoscopic evidence of gastric varices. The pylorus, duodenal bulb and post-bulbar duodenal sweep were inspected and noted to be unremarkable. At that point, the scope was slowly withdrawn and careful circumferential views confirmed the above findings and the patient tolerated the procedure well. The varices were small and it was felt that she is not a candidate for banding at this point in time. She also does have a Schatzki ring and will discuss with her. In view of her varices and portal hypertension, we did not attempt to dilate the ring today. CONDITION OF THE PATIENT UPON DISCHARGE: Following procedure, the patient drowsy, aroused, conversant and will be discharged home when fully ambulatory. INSTRUCTIONS TO THE PATIENT AND FAMILY AT THE TIME OF DISCHARGE: Esophageal varices have been stable over the past year. We will have her return in 1 year for screening for esophageal varices once again. The patient does have evidence of hepatic encephalopathy. Xifaxan has been an issue in terms of cause for her. However, she is now on Xifaxan. She is currently taking 550 mg twice daily rather than 3 times daily. However, both she and her state that she does feel better with the Xifaxan. If possible could increase to 550 three times daily, but cost is nearly prohibitive. We will have her return for followup in the office in about 6 weeks. <ELECTRONICALLY SIGNED> By: Chapo Montoya MD 02/17/19 1048 [id number] Chapo Montoya MD /nt
== END | disposition home or self-care (01) ==
LOC: GI 07:18
DX: I85.00 Esophageal varices without bleeding (principal); K22.2 Esophageal obstruction; K29.70 Gastritis, unspecified, without bleeding; K44.9 Diaphragmatic hernia without obstruction or gangrene; K21.9 Gastro-esophageal reflux disease without esophagitis; F32.9 Major depressive disorder, single episode, unspecified; M19.90 Unspecified osteoarthritis, unspecified site; D64.9 Anemia, unspecified; Z98.890 Other specified postprocedural states; Z90.710 Acquired absence of both cervix and uterus; Z98.41 Cataract extraction status, right eye; Z98.42 Cataract extraction status, left eye; Z79.899 Other long term (current) drug therapy; Z88.6 Allergy status to analgesic agent; Z88.8 Allergy status to other drugs, medicaments and biological substances
CPT/HCPCS: 62110; 62900

== ENCOUNTER 2019-04-27 15:57 | Emergency (ER) | payer OTHER ==
[~2019-04-27] VITALS: Ht 167.6 cm; Wt 65.8 kg
[2019-04-27] MEDS ORDERED: NORCO 5-325 TA1 EAC1 PO (18:17)
[2019-04-27 18:29] VITALS: BP 101/57
== END 2019-04-27 18:30 | disposition home or self-care (01) ==
LOC: ER 15:57
DX: S42.212A Unspecified displaced fracture of surgical neck of left humerus, initial encounter for closed fracture (principal); K21.9 Gastro-esophageal reflux disease without esophagitis; F32.9 Major depressive disorder, single episode, unspecified; M19.90 Unspecified osteoarthritis, unspecified site; Z86.2 Personal history of diseases of the blood and blood-forming organs and certain disorders involving the immune mechanism; Z90.710 Acquired absence of both cervix and uterus; Z98.890 Other specified postprocedural states; Z90.89 Acquired absence of other organs; Z88.5 Allergy status to narcotic agent; W01.0XXA Fall on same level from slipping, tripping and stumbling without subsequent striking against object, initial encounter; Y93.01 Activity, walking, marching and hiking; Y92.89 Other specified places as the place of occurrence of the external cause; Y99.8 Other external cause status

== ENCOUNTER 2019-08-05 13:20 | Emergency (ER) | payer OTHER ==
[~2019-08-05] VITALS: Ht 167.6 cm; Wt 68.0 kg
[~2019-08-05 13:20] MED LIST changes: +NORCO 5-325 TA1 EAC1 PO
[2019-08-05 15:40] LABS: URINE CLARITY GROSSLY BLOODY; URINE COLOR RED
[2019-08-05 15:44] LABS: CASTS None Seen /LPF (None Seen); MUCUS None Seen strn/LPF (None Seen); RENAL EPITHELIAL CELLS 0-3 Few /LPF (None Seen); SQUAMOUS >10 Many /LPF (0-3); URINE RBC >20 Many /HPF (0-2); URINE WBC-REFLEX 6-15 Few /HPF (0-5)
[2019-08-05 15:45] LABS: CRYSTALS None Seen /LPF (None Seen)
[2019-08-05 15:58] LABS: ABSOLUTE NEUTROPHILS 1.7 thou/uL (1.4-8.2); BASOPHILS 0.9 % (0.0-2.0); EOSINOPHILS 5.7 % (0.0-3.0); HEMOGLOBIN 10.1 gm/dL (12.0-15.0); LYMPHOCYTES 39.6 % (24.0-44.0); MCH 31.2 pg (26.0-34.0); MCHC 33.7 g/dL (28.0-37.0); MCV 92.6 fL (80.0-100.0); MONOCYTES 10.3 % (1.0-8.0); PLATELET COUNT 89 thou/uL (150-400); POLYS 43.5 % (36.0-66.0); RBC 3.24 mil/uL (4.20-5.00); RDW 15.1 % (10.5-14.5); WBC 3.8 thou/uL (4.0-11.0)
[2019-08-05 16:11] LABS: CALCIUM 8.9 mg/dL (8.5-10.1); CREATININE 1.1 mg/dL (0.6-1.0); POTASSIUM 3.6 mmol/L (3.5-5.1)
[2019-08-05 16:17] LABS: ALBUMIN 2.8 g/dL (3.4-5.0); TOTAL BILIRUBIN 2.1 mg/dL (<0.1-1.0); TOTAL PROTEIN 6.4 g/dL (6.4-8.2)
[2019-08-05 19:08] LABS: URINE BILIRUBIN NEGATIVE (Negative); URINE BLOOD 3+ (Negative); URINE CLARITY CLEAR; URINE COLOR YELLOW; URINE GLUCOSE-RANDOM* NEGATIVE (Negative); URINE KETONES NEGATIVE (Negative); URINE PROTEIN (DIPSTICK) NEGATIVE (Negative)
[2019-08-05 19:16] LABS: URINE LEUKOCYTES-REFLEX 1+ (Negative); URINE NITRITE-REFLEX POSITIVE (Negative)
[2019-08-05 19:24] LABS: BACTERIA-REFLEX 1-9 Few /HPF (None Seen); CASTS None Seen /LPF (None Seen); CRYSTALS None Seen /LPF (None Seen); SQUAMOUS 0-3 Few /LPF (0-3); URINE RBC >20 Many /HPF (0-2); URINE WBC-REFLEX 0-5 Rare /HPF (0-5)
[2019-08-05] MEDS ORDERED: ESTRACE42.5 GM VAG (20:40)
[2019-08-05] MEDS ORDERED: KEFLEX500 M1 PO (20:40)
[2019-08-05 21:20] VITALS: BP 144/57
== END 2019-08-05 21:20 | disposition home or self-care (01) ==
LOC: ER 13:20
PROVIDERS: Emergency Medicine; Physician Assistant
DX: N39.0 Urinary tract infection, site not specified (principal); N13.9 Obstructive and reflux uropathy, unspecified; N95.2 Postmenopausal atrophic vaginitis; K21.9 Gastro-esophageal reflux disease without esophagitis; M19.90 Unspecified osteoarthritis, unspecified site; F32.9 Major depressive disorder, single episode, unspecified; Z90.710 Acquired absence of both cervix and uterus; Z90.49 Acquired absence of other specified parts of digestive tract; Z86.2 Personal history of diseases of the blood and blood-forming organs and certain disorders involving the immune mechanism; Z88.6 Allergy status to analgesic agent

== ENCOUNTER → 2020-02-20 | Outpatient (CLI) | payer OTHER ==
[~2020-02-20] MED LIST changes: +ESTRACE42.5 GM VAG; +KEFLEX500 M1 PO; +TRAMADOL 50 MG50 MG PO
== END ==
LOC: LAB 13:40
PROVIDERS: ATTEND Student in an Organized Health Care Education/Training Program
DX: Z01.812 Encounter for preprocedural laboratory examination (principal); Z11.59 Encounter for screening for other viral diseases

== ENCOUNTER → 2020-02-25 | Outpatient (CLI) | payer OTHER ==
[~2020-02-25] VITALS: Ht 170.2 cm; Wt 63.5 kg
--- NOTE | 2020-02-28 09:20 | P ---
[facility] [place] [address] PROCEDURE REPORT Name: OLIVIA BRADLEY Room #: REG [facility]#: [id number] Admission: 02/25/20 Attend Phys: Chapo Montoya MD Discharge: Date of : 39 Report #: [id number] THIS REPORT FOR: cc: Lucio Peraza MD, Rene P. MD Thesing, John A. MD ~ CC: Chapo Peraza DATE OF SERVICE: 02/25/2020 OUTPATIENT UPPER ENDOSCOPY REPORT BRIEF HISTORY: The patient is an 80-year-old woman known to me with a history of alcoholic cirrhosis. She does have a history of grade 1 esophageal varices in the past. There is no previous history of gastrointestinal bleeding. She presents now for evaluation of her esophagus with surveillance and possible banding of varices. PREOPERATIVE DIAGNOSIS: Chronic liver disease with history of varices. POSTOPERATIVE DIAGNOSES: 1. Diffuse gastritis, chronic appearing. 2. Small hiatus hernia. 3. History of esophageal varices, not detected on today's examination. MEDICATIONS: Deep sedation with propofol per Anesthesia. SPECIMEN: None. ESTIMATED BLOOD LOSS: None. PROCEDURE: EGD. FINDINGS: Prior to propofol sedation, procedure of upper endoscopy discussed with the patient as well as potential risks and its complications. She indicates she understands and desires to proceed. DESCRIPTION OF PROCEDURE: With in left lateral decubitus position, the Olympus video endoscope was inserted in the cervical esophagus under direct vision without difficulty. Examination of this organ through its entire length revealed normal esophageal mucosa down the squamocolumnar junction. Squamocolumnar junction was unremarkable. The scope was inserted and withdrawn through the distal esophagus on multiple occasions. I could not detect any varices on examination today. In addition, there was a slight Schatzki ring at [facility] [address] [place] [address] PROCEDURE REPORT Name: OLIVIA BRADLEY Room #: REG [facility]#: [id number] Admission: 02/25/20 Attend Phys: Chapo Montoya MD Discharge: Date of : 39 Report #: [id number] the GE junction. However, she denies any problems with dysphagia at this time and due to her known portal hypertension, since she does not have any symptoms, the ring was not dilated. The scope was advanced and a 2 cm sliding type hiatus hernia was encountered. The mucosa from the hernia was unremarkable. Scope was advanced into the stomach, was examined on end view as well as retroflexed views. There was a pattern of a chronic appearing gastritis with erythema in the antrum and also a cobblestone pattern in the body of the stomach. No ulcers, erosions or bleeding lesions were seen. No varices were seen. Upon retroflexion, no other lesions were seen. These findings have been noted in the past. Pyloric duodenal bulb and postbulbar duodenal sweep were all inspected and noted to be unremarkable. At that point, the scope was slowly withdrawn and careful circumferential views confirmed the above findings. The patient tolerated the procedure well. CONDITION OF THE PATIENT UPON DISCHARGE: Following procedure, the patient was drowsy, arousable and conversant and will be discharged to home when fully ambulatory. INSTRUCTIONS TO THE PATIENT AND FAMILY AT THE TIME OF DISCHARGE: No obvious varices seen today. We will have her return in 1 year for followup screening endoscopy to evaluate for varices. I have not seen her in many months in the office. Advised her to return for followup in the office for further discussion of her chronic liver disease and continued management. <ELECTRONICALLY SIGNED> By: Chapo Montoya MD 02/28/20 0920 [id number] Chapo Montoya MD /nt
== END | disposition home or self-care (01) ==
LOC: GI 06:54 → EDSTATUS 10:18 → GI 12:33
PROVIDERS: ATTEND Specialist
DX: K76.0 Fatty (change of) liver, not elsewhere classified (principal); K29.50 Unspecified chronic gastritis without bleeding; K44.9 Diaphragmatic hernia without obstruction or gangrene; F32.9 Major depressive disorder, single episode, unspecified; E03.9 Hypothyroidism, unspecified; Z90.710 Acquired absence of both cervix and uterus; Z98.890 Other specified postprocedural states; Z79.899 Other long term (current) drug therapy; Z86.73 Personal history of transient ischemic attack (TIA), and cerebral infarction without residual deficits; Z87.440 Personal history of urinary (tract) infections; Z72.89 Other problems related to lifestyle
CPT/HCPCS: 62110; 62900

== ENCOUNTER 2021-01-05 07:28 | Emergency (ER) | payer OTHER ==
[~2021-01-05] VITALS: Ht 167.6 cm; Wt 74.8 kg
[2021-01-05 08:27] LABS: ABSOLUTE NEUTROPHILS 4.7 thou/uL (1.4-8.2); BASOPHILS 0.2 % (0.0-2.0); EOSINOPHILS 2.3 % (0.0-3.0); HEMATOCRIT 28.5 % (37.0-47.0); HEMOGLOBIN 9.3 gm/dL (12.0-15.0); LYMPHOCYTES 18.3 % (24.0-44.0); MCH 23.7 pg (26.0-34.0); MCHC 32.6 g/dL (28.0-37.0); MCV 72.6 fL (80.0-100.0); MONOCYTES 9.5 % (1.0-8.0); PLATELET COUNT 154 thou/uL (150-400); POLYS 69.7 % (36.0-66.0); RBC 3.93 mil/uL (4.20-5.00); RDW 20.1 % (10.5-14.5); WBC 6.8 thou/uL (4.0-11.0)
[2021-01-05 08:32] LABS: CALCIUM 9.5 mg/dL (8.5-10.1); CREATININE 2.8 mg/dL (0.6-1.0); POTASSIUM 5.5 mmol/L (3.5-5.1)
[2021-01-05 08:39] LABS: ALBUMIN 3.2 g/dL (3.4-5.0); TOTAL BILIRUBIN 1.9 mg/dL (0.2-1.0); TOTAL PROTEIN 6.8 g/dL (6.4-8.2)
[2021-01-05 08:42] LABS: URINE BILIRUBIN NEGATIVE (Negative); URINE BLOOD NEGATIVE (Negative); URINE CLARITY CLEAR; URINE COLOR YELLOW; URINE GLUCOSE-RANDOM* NEGATIVE (Negative); URINE KETONES NEGATIVE (Negative); URINE LEUKOCYTES-REFLEX NEGATIVE (Negative); URINE NITRITE-REFLEX NEGATIVE (Negative); URINE PROTEIN (DIPSTICK) NEGATIVE (Negative); URINE UROBILINOGEN 0.2 E.U./dl (0.2-1.0)
[2021-01-05 09:35] LABS: ANISOCYTOSIS 2+; HYPOCHROMASIA 1+; MICROCYTES 1+
[2021-01-05 13:48] VITALS: BP 81/46
== END 2021-01-05 14:00 | disposition home or self-care (01) ==
LOC: ER 07:28
PROVIDERS: Emergency Medicine Emergency Medical Services
DX: N18.30 Chronic kidney disease, stage 3 unspecified (principal); E03.9 Hypothyroidism, unspecified; D64.9 Anemia, unspecified; F32.9 Major depressive disorder, single episode, unspecified; F10.20 Alcohol dependence, uncomplicated; G25.81 Restless legs syndrome; M54.5 Low back pain; E16.2 Hypoglycemia, unspecified; F03.90 Unspecified dementia, unspecified severity, without behavioral disturbance, psychotic disturbance, mood disturbance, and anxiety; K21.9 Gastro-esophageal reflux disease without esophagitis; Z90.710 Acquired absence of both cervix and uterus; Z90.89 Acquired absence of other organs; Z88.5 Allergy status to narcotic agent; Z98.890 Other specified postprocedural states

== ENCOUNTER → 2021-02-12 | Outpatient (CLI) | payer OTHER | LOC: RAD 10:19 | PROVIDERS: ATTEND Family Medicine | DX: M19.072 Primary osteoarthritis, left ankle and foot (principal); M77.32 Calcaneal spur, left foot ==

== ENCOUNTER → 2021-03-11 | Outpatient (CLI) | payer OTHER ==
[~2021-03-11] VITALS: Ht 167.6 cm; Wt 63.5 kg
[~2021-03-11] MED LIST changes: -CELEXA 20 MG TA20 M1 PO; +CELEXA 20 MG TA20 MG PO
--- NOTE | 2021-03-11 14:36 | P ---
[facility] [place] [address] PROCEDURE REPORT Name: OLIVIA BRADLEY Room #: REG [facility].#: [id number] Admission: 03/11/21 Attend Phys: Timo Franco Discharge: Date of : 39 Report #: [id number] THIS REPORT FOR: cc: Lucio Peraza MD, Rene P. MD McElhinney, Christian C. MD ~ cc: Lucio Peraza MD DATE OF SERVICE: 03/11/2021 PROCEDURE PERFORMED: Upper endoscopy with esophageal dilation. HISTORY OF PRESENT ILLNESS: The patient is an 81-year-old female who was seen in the office on 03/05/2021. She has a history of cirrhosis, previous history of esophageal varices. No previous history of upper GI bleed. At one time, she had grade I to grade II varices in the past. Her most recent upper endoscopy was by Dr. Montoya, my partner, who is now retired. On 02/25/2020, no evidence of varices at that time. She is here for 1-year followup. She does report intermittent dysphagia. She is on Protonix on a daily basis. DESCRIPTION OF PROCEDURE: The risks and benefits of the procedure were explained to the patient, those risks including but not limited to bleeding, perforation and the risk of sedation. She understood these risks and gave informed consent. Sedation was given using propofol per anesthesia. Next, using a standard Olympus upper endoscope, the scope was placed in the patient's mouth and advanced under direct vision through the esophagus, stomach and into the second portion of the duodenum. The larynx was normal in appearance. There was a mild narrowing in the proximal esophagus. The mid and distal esophagus was normal. There was no evidence of esophageal varices. No evidence of esophagitis. Upon entering the stomach, a small hiatal hernia was again noted. Overall, the gastric mucosa was normal. The pylorus was normal and patent. The duodenal bulb, first and second portion were all normal. The scope was then brought back up into the patient's stomach and a Savary guidewire was inserted through the scope, leaving a guidewire in place as the scope was then withdrawn. Next, a 48-Urdu Savary dilation of the esophagus was then performed without difficulty. The wire and dilator removed. The scope was reintroduced into the patient's esophagus. There was a small mucosal tear in the proximal esophagus. No evidence of bleeding. At this point, the scope was then withdrawn and the procedure terminated. The patient tolerated the procedure well. IMPRESSION: 1. Mild narrowing of the proximal esophagus, status post dilation. 2. No evidence of esophageal varices. 3. Small hiatal hernia. 4. Otherwise, normal upper endoscopy. [facility] [address] [place] [address] PROCEDURE REPORT Name: MIRNAOLIVIA M Room #: REG [facility]#: [id number] Admission: 03/11/21 Attend Phys: Timo Franco Discharge: Date of : 39 Report #: [id number] RECOMMENDATIONS: 1. Observe the patient post-dilation. 2. Continue daily PPI therapy. 3. Repeat upper endoscopy in 2 years. Thank you for allowing me to participate in her care. <ELECTRONICALLY SIGNED> By: Timo Odell MD 03/11/21 1436 [id number] Timo Odell MD /nt
== END | disposition home or self-care (01) ==
LOC: GI 07:00
PROVIDERS: ATTEND Specialist
DX: R13.10 Dysphagia, unspecified (principal); K22.2 Esophageal obstruction; K44.9 Diaphragmatic hernia without obstruction or gangrene; E03.9 Hypothyroidism, unspecified; F32.9 Major depressive disorder, single episode, unspecified; K21.9 Gastro-esophageal reflux disease without esophagitis; M19.90 Unspecified osteoarthritis, unspecified site; Z98.890 Other specified postprocedural states; Z20.822 Contact with and (suspected) exposure to COVID-19; Z79.899 Other long term (current) drug therapy; Z90.710 Acquired absence of both cervix and uterus; Z88.8 Allergy status to other drugs, medicaments and biological substances
CPT/HCPCS: 62110; 62900

== ENCOUNTER 2021-05-23 04:36 | Inpatient (IN) | payer OTHER ==
[2021-05-23] VITALS (10 sets, daily range): BP systolic 90–128; BP diastolic 40–57
[~2021-05-23] VITALS: Ht 167.6 cm; Wt 78.9 kg
[2021-05-23 05:40] LABS: ABSOLUTE NEUTROPHILS 7.7 thou/uL (1.4-8.2); BASOPHILS 0.1 % (0.0-2.0); EOSINOPHILS 0.3 % (0.0-3.0); HEMATOCRIT 34.2 % (37.0-47.0); HEMOGLOBIN 11.2 gm/dL (12.0-15.0); MCHC 32.8 g/dL (28.0-37.0); MCV 79.3 fL (80.0-100.0); PLATELET COUNT 140 thou/uL (150-400); POLYS 86.6 % (36.0-66.0); RBC 4.31 mil/uL (4.20-5.00); RDW 23.6 % (10.5-14.5); WBC 8.8 thou/uL (4.0-11.0)
[2021-05-23 05:42] LABS: URINE BILIRUBIN NEGATIVE (Negative); URINE BLOOD NEGATIVE (Negative); URINE CLARITY CLEAR; URINE COLOR YELLOW; URINE GLUCOSE-RANDOM* NEGATIVE (Negative); URINE KETONES NEGATIVE (Negative); URINE LEUKOCYTES-REFLEX NEGATIVE (Negative); URINE NITRITE-REFLEX NEGATIVE (Negative); URINE PROTEIN (DIPSTICK) NEGATIVE (Negative)
[2021-05-23 05:49] LABS: CALCIUM 9.3 mg/dL (8.5-10.1); CREATININE 1.4 mg/dL (0.6-1.0); POTASSIUM 4.3 mmol/L (3.5-5.1)
[2021-05-23 05:55] LABS: ALBUMIN 3.3 g/dL (3.4-5.0); TOTAL BILIRUBIN 2.7 mg/dL (0.2-1.0); TOTAL PROTEIN 7.1 g/dL (6.4-8.2)
--- NOTE | 2021-05-23 19:28 | NUR ---
PATIENT ADMIT TO UNIT AT 1030 FROM ER. A/O X3. VSS. C/O ABD PAIN NO NAUSEA.PAIN MED S GIVEN NEED. PATIENT DROWSY WITH LOW URINE OUT PUT. BAZAN IN. WILL KEEP MONITOR.
[2021-05-24] VITALS (78 sets, daily range): BP systolic 83–160; BP diastolic 34–129
[2021-05-24 00:26] LABS: HEMATOCRIT 32.2 % (37.0-47.0); HEMOGLOBIN 10.3 gm/dL (12.0-15.0); MCH 25.8 pg (26.0-34.0); MCHC 31.9 g/dL (28.0-37.0); MCV 80.9 fL (80.0-100.0); RBC 3.98 mil/uL (4.20-5.00); RDW 24.8 % (10.5-14.5); WBC 9.7 thou/uL (4.0-11.0)
[2021-05-24 00:43] LABS: ALBUMIN 2.4 g/dL (3.4-5.0); CALCIUM 8.2 mg/dL (8.5-10.1); CREATININE 2.2 mg/dL (0.6-1.0); POTASSIUM 4.1 mmol/L (3.5-5.1); TOTAL BILIRUBIN 2.9 mg/dL (0.2-1.0); TOTAL PROTEIN 5.8 g/dL (6.4-8.2)
--- NOTE | 2021-05-24 02:00 | NUR ---
ASSUMED PT CARE AT 1900.PT VERY RESTLESS ON HER BED AT SHIFT CHANGE.PT OBSERVED TRYING TO GET OUT OF HER BED MULTIPLE TIMES TO GO AND URINATE.PT INFORMED THAT SHE HAS A BAZAN.BLADDER SCAN DONE,PT HAD 40CC.PT'S ABD WAS DISTENDED AND FIRM.BAZAN CATH IRRIGATED,NO RESISTANCE NOTED.PT WHEEZING AND BREATHING LABORED.PT WAS AFEBRILE AT START OF SHIFT BUT LATER HAD A TEMP OF 101.2.ASSISTANT MEDIA BUYER ON DUTY NOTIFIED,ORDER NOTED AND CARRIED OUT.PT WAS LATER TRANSFERRED TO CCU RM 208 WITH ALL HER PERSONAL BELONGINGS IN A STABLE CONDITION.REPORT GIVEN TO RN TAKING OVER PT'S CARE.
--- NOTE | 2021-05-24 04:58 | NUR ---
05/24/21 0030 PATIENT ADMITTED FROM [facility] VIA STRETCHER. PATIENT IS AAOX1. SHE IS ON 3L NC. PATIENT GRIMACING IN PAIN STATING THAT HER STOMACH HURTS. INITIAL SET OF VITALS SHOW THAT PATIENT IS HYPOTENSIVE AT 84/41. HER O2 IS 96%. RR 24 AND SHE IS NSR AT 88 ON TELEMETRY. SHE IS ON BEDREST SHE IS UNSTABLE ON HER FEET. PATIENT HAS IV NS RUNNING AT 100ML/HR. NOTED ORDER FOR NS 150ML/HR WHICH THIS NURSE ADJUSTS TO. VITAL SIGN RECHECKS ARE SET FOR Q15 MINUTES. AFTER AN HOUR OF BEING ON THE UNIT NOTED THAT PATIENT HAS PRODUCED 0 URINE. HER VITALS DURING THIS TIME HAVE BEEN 83/41, 92/40, 84/39, 87/41. NOTIFIED RAIL FLAW DETECTOR OPERATOR REGARDING PATIENT STATUS. RECEIVED ORDER FOR 1 LITER NS BOLUS. AFTER INFUSION COMPLETE NOTED THAT PATIENT STILL HAS VERY SCANT AMOUNT OF ORANGE URINE OUTPUT. B/P CONTNUES TO RUN LOW AT 85/39, 83/38. PATIENT WAS BLADDER SCANNED AND IT IS NOTED THAT THERE IS ONLY 38ML OF URINE SCANNED. NOTIFIED RAIL FLAW DETECTOR OPERATOR AGAIN OF PATIENT STATUS. PT LUNGS REMAIN CLEAR IN UPPER LOVES AND DIMINISHED IN LOWER LOBES. RECEIVED ORDER FOR ADDITIONAL 1L BOLUS OF NS. DURING THIS INFUSION PATIENTS B/P REMAINS UNCHANGED. APPROXIMATELY 25ML OF URINE NOTED IN THE BAZAN AFTER PREVIOUS HOUR WAS EMPTIED. RAIL FLAW DETECTOR OPERATOR ORDERED STAT CT OF ABDOMEN AND TO TRANSFER TO ICU. REPORT WAS CALLED AND PATIENT WAS TRANSFERRED TO ICU AFTER CT WAS COMPLETED.
--- NOTE | 2021-05-24 05:01 | NUR ---
ASSUMED CARE OF PATIENT FROM 2N RN. LEVOPHED GTT STARTED, PAIN MEDICINE GIVEN. PATIENT IS EXTREMELY UNCOMFORTABLE AND IN PAIN. FLUIDS INFUSING ORDERED. WILL TITRATE LEVOPHED ORDERED.
--- NOTE | 2021-05-24 13:30 | NUR ---
PICC PLACED FOR ICU NEEDS
--- NOTE | 2021-05-24 17:37 | NUR ---
PT ALERT AND ORIENTED TIMES TWO. LEVO GTT INFUSING PER ORDER. BAZAN TO DD. PT C/O PAIN PRN PAIN MEDICATIONS GIVEN WITH GOOD RELEIF. PT AND SISTERAT BEDSIDE THOROUGHT THE DAY. WILL CONTINUE TO MONITOR.
[2021-05-25] VITALS (95 sets, daily range): BP systolic 77–135; BP diastolic 25–80
--- NOTE | 2021-05-25 06:00 | NUR ---
PT SLEPT MOST OF NIGHT AFTER RUQ PAIN UNDER CONTROL FENTANYL X 2 TONIGHT REMAINS ON LEVOPHED GTT AT 5 MCG SINUS RHYTHM PROGRESSING TOWARD GOALS
[2021-05-25 06:57] LABS: HEMATOCRIT 27.4 % (37.0-47.0); HEMOGLOBIN 8.8 gm/dL (12.0-15.0); MCH 26.2 pg (26.0-34.0); MCHC 32.2 g/dL (28.0-37.0); MCV 81.2 fL (80.0-100.0); RBC 3.38 mil/uL (4.20-5.00); RDW 25.2 % (10.5-14.5); WBC 10.5 thou/uL (4.0-11.0)
[2021-05-25 07:18] LABS: CALCIUM 7.4 mg/dL (8.5-10.1); PHOSPHORUS 2.8 mg/dL (2.6-4.7); POTASSIUM 4.1 mmol/L (3.5-5.1); TOTAL BILIRUBIN 1.8 mg/dL (0.2-1.0); TOTAL PROTEIN 5.4 g/dL (6.4-8.2)
[2021-05-25 07:19] LABS: CREATININE 1.2 mg/dL (0.6-1.0)
[2021-05-25 07:44] LABS: INR 1.55; PROTIME 16.5 Seconds (10.5-12.1)
--- NOTE | 2021-05-25 08:04 | NUR ---
ORDERS FOR EVAL AND TREAT HOWEVER Pt HAS TRANSFERRED TO ICU. WILL PLACE ON HOLD AND AWAIT NEW ORDERS WHEN APPROPRIATE
--- NOTE | 2021-05-25 09:10 | NUR ---
PT TRANSFERRED TO ICU AFTER RECEIVING OT EVAL REQUEST. HOLD OT AND AWAIT NEW OT ORDERS.
--- NOTE | 2021-05-25 16:53 | NUR ---
PT ADMITTED RELATED TO PANCREATITIS. PT WAS DISCUSSED WITH CARE TEAM DURING ICU REOUNDS THIS AM. PT IS ON IV ZOSYN AND LEVOPHED. CARE TEAM INDICATED THAT PT MAY BE ABLE TO STOP LEVOPHED LATER TODAY OR TOMORROW AND TRANSFER OUT OF ICU. PT WAS TO HAVE A MRI THIS DAY BUT THE MRI IS DOWN. CM ATTEMTPED TO VISIT WITH PT TWICE THIS DAY THIS AM SHE WAS HAVING A BREATHING TREATMENT AND THIS AFTERNOON SHE HAD A VISITOR. CM ATTEMTPED PC TO HER SPOUSE SUKHDEV AND LEFT VM. IT APPEARES PT RESIDES IN A HOUSE WITH HER SPOUSE AND MAY HAVE USED A WC TO ASSIST WITH MOBILITY WIRELESS OPERATOR. CM FOLLOWING.
--- NOTE | 2021-05-25 19:08 | NUR ---
Patient progressing towards goal. Urine output 400mL. Patient remains NPO per GI MD. Midodrine held due to that reason. Patient on 3L NC. Pain controlled with medications. and sister at bedside throughout the day.
[2021-05-26] VITALS (43 sets, daily range): BP systolic 70–151; BP diastolic 21–64
--- NOTE | 2021-05-26 04:00 | NUR ---
PT SUDDENLY DEV SCATTERED RALES AND WHEEZING. DR OBRIEN NOTIFIED LEFT ORDERS FOR ALBUMIN AND TO FOLLOW WITH 40 MG LASIX,. WILL CONT TO MONITOR
[2021-05-26 05:17] LABS: CALCIUM 7.5 mg/dL (8.5-10.1); CREATININE 1.1 mg/dL (0.6-1.0); PHOSPHORUS 1.9 mg/dL (2.5-4.9); POTASSIUM 3.4 mmol/L (3.5-5.1)
--- NOTE | 2021-05-26 06:00 | NUR ---
RESTING QUIETLY. DIURECED 1600 CC ML URINE. LUNGS ESS CLEAR O2 SAT 96 % ON 2 L NC SLEPT MOST OF NIGHT REMAINS IN SINUS RHYTHM. LEVOPHED GTT TITRATED TO 1 MCG SBP 119/51 PROGRESSING TOWARD GOALS. 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 WILL CONT TO MONITOR
[2021-05-26 09:46] LABS: HEMATOCRIT 26.5 % (37.0-47.0); HEMOGLOBIN 8.5 gm/dL (12.0-15.0); MCH 26.1 pg (26.0-34.0); MCHC 32.2 g/dL (28.0-37.0); MCV 80.9 fL (80.0-100.0); RBC 3.28 mil/uL (4.20-5.00); WBC 10.5 thou/uL (4.0-11.0)
[2021-05-26 10:17] LABS: ALBUMIN 2.1 g/dL (3.4-5.0); DIRECT BILIRUBIN 0.7 mg/dL (<0.1-0.2); TOTAL BILIRUBIN 1.6 mg/dL (0.2-1.0); TOTAL PROTEIN 5.4 g/dL (6.4-8.2)
[2021-05-26 14:10] LABS: INR 1.34; PROTIME 14.4 Seconds (10.5-12.1)
--- NOTE | 2021-05-26 16:34 | NUR ---
PT'S CARE WAS DISCUSSED DURING ICU ROUNDS THIS AM. PT IS OFF LEVOPHED. PT HAD MRI AND ERCP THIS DAY. CM ATTEMTPED TO VISIT WITH PT THIS AFTERNOON BUT PT WAS SLEEPING. CM CALLED AND SPOKE WITH PT'S SISTER COLT ROLLINS. SHE INDICATED THAT PT AND SPOUSE RESIDE IN A HOUSE WITH 2 STEPS TO ENTER THROUGH GARAGE AND 2 STEPS IN FRONT. SISTER INDICATED THAT PT HAS FULL FLIGHT OF STEPS TO THE BASEMENT WHERE HER SHOWER IS AND THAT SHE USES THEM REGULARLY. SISTER INDICATED THAT PT HAS A FWW, AND A CANE FOR USE AT HOME. SISTER INDICATED THAT PT HAD BEEN INDEPEDNENT WITH ADLS BINGO CASHIER BUT THAT SHE TAKES A LONG TIME TO DO THINGS. SHE INDICATED PT HAD FALLEN IN PAST AND HAD INJURED HER SHOULDER LAST CALL. SHE STATED THAT PT HAS HAD HH IN THE PAST. SISTER INDICATED THAT PT HAS THREE KIDS WHO ALL LIVE OUT OF STATE SON WHO LIVES IN [place] IS AN ANASTESIALOGIST, SON IN [place], AND DTR IN [place]. SISTER INDICATED SHE THOUGHT PT MIGHT BENEFIT FROM SHORT TERM POST ACUTE CARE STAY OR AT LEAST HH BUT THAT PT AND SPOUSE MAY NOT BE RECEPTIVE. IT IS ANTICIPATED THAT PT MAY BE MEDICALLY STABLE TO TRANSFER OUT OF ICU THIS DAY. CM FOLLOWING REGARDING DC PLANNING.
--- NOTE | 2021-05-26 19:09 | NUR ---
Patient off levophed since 7am. Orders to transfer to CCU tele, patient has wheezes and difficulty breathing with any type of exertion. MD notified, x-ray obtained, breathing treatments added. Emilia D/C'keo. Family at bedside throughout the day. All questions and concerns addressed. Per Dr. Roman keep BP above systolic 90. and if flutter valve does not help with congestion inform him and he will add IPV.
--- NOTE | 2021-05-26 19:15 | NUR ---
Vital signs stable all day, afebrile.
--- NOTE | 2021-05-26 22:20 | NUR ---
REPORT GIVEN TO NEEMA VILLA ON 2N. PT TRANSFERED OVER TO ROOM 218. NO COMPLICATIONS.
[2021-05-27] VITALS (8 sets, daily range): BP systolic 94–121; BP diastolic 4–63
[2021-05-27 05:28] LABS: HEMATOCRIT 23.2 % (37.0-47.0); HEMOGLOBIN 7.8 gm/dL (12.0-15.0); MCH 26.6 pg (26.0-34.0); MCHC 33.6 g/dL (28.0-37.0); MCV 79.3 fL (80.0-100.0); RBC 2.92 mil/uL (4.20-5.00); RDW 25.1 % (10.5-14.5); WBC 6.2 thou/uL (4.0-11.0)
[2021-05-27 05:56] LABS: INR 1.41; PROTIME 15.1 Seconds (10.5-12.1)
--- NOTE | 2021-05-27 05:57 | NUR ---
PATIENT TRANSFERED FROM ICU AROUND 2229. PLACED ON MONITOR AND ASSESSED. PLAN IS FOR PATIENT TO HAVE ERCP AT NOON TODAY. NPO SINCE MIDNIGHT. BAZAN PULLED PRIOR. PATIENT IS USING [place]. C/O RUQ PAIN, PAIN MED GIVEN.
[2021-05-27 06:01] LABS: ALBUMIN 2.1 g/dL (3.4-5.0); CALCIUM 7.5 mg/dL (8.5-10.1); CREATININE 1.1 mg/dL (0.6-1.0); PHOSPHORUS 2.9 mg/dL (2.5-4.9); POTASSIUM 3.6 mmol/L (3.5-5.1); TOTAL BILIRUBIN 2.5 mg/dL (0.2-1.0); TOTAL PROTEIN 5.2 g/dL (6.4-8.2)
--- NOTE | 2021-05-27 10:59 | NUR ---
UPON SHIFT REPORT, PT SLEEPING NOTABLY DROWSY. PT REPORTING 5-6/10 RUQ PAIN. PT RECEIVING PRN IV FENTANYL Q4HR, LAST GIVEN AT 0132. UPON SHIFT ASSESSMENT, PT REMAINS DROWSY, SLEEP INTERRUPTED, ABLE TO AROUSE TO VERBAL AND TACTILE STIMULATION AND ANSWER ORIENTATION PROMPTS APPROPRIATELY. PT DENIES RUQ PAIN, REPORTING BLE CRAMPING 8/10 PAIN. PT ASSESSED WITH O2 SATURATION IN THE 70S WHILE ON 3L O2 VIA NC, PT REPORTING SOB, HEAD OF BED ELEVATED, O2 INCREASED TO 6, O2 SATURATION NOTED TO IMPROVE. O2 TITRATED TO 3.5L WITHOUT DESATURATION, PT REPORTS RELIEF. FENTANYL WITHELD AT THIS TIME PT DROWSY AND BP OF 94/63. PT REMAINS NPO. PT WITHOUT NAUSEA OR EMESIS. PT RESTING IN BED, FREQUENT REPOSITIONING ENCOURAGED, PT INTERMITTENTLY REFUSING REPOSITIONING ASSISTANCE. SENSATION INTACT, CAPILLARY REFILL LESS THAN 3SEC, PERIPHERAL PULSES PALPABLE IN ALL EXTREMITIES. PT ENCOURAGED TO NOTIFY STAFF FOR ALL NEEDS, CALL LIGHT WITHIN REACH, BED ALARM ON, BED LOCKED IN LOWEST POSITION, FREQUENT MONITORING WILL CONTINUE. UPON REVIEWING ORDERS, PT TO RECEIVE PLATELET TRANSFUSION, BLOOD BANK NOTIFIED- WILL CALLBACK WHEN PLATELETS READY FOR PICKUP.
[2021-05-27 19:03] LABS: HEMATOCRIT 25.3 % (37.0-47.0); HEMOGLOBIN 8.3 gm/dL (12.0-15.0); MCH 26.3 pg (26.0-34.0); MCHC 32.9 g/dL (28.0-37.0); PLATELET COUNT 76 thou/uL (150-400); RBC 3.15 mil/uL (4.20-5.00); RDW 25.6 % (10.5-14.5); WBC 6.7 thou/uL (4.0-11.0)
--- NOTE | 2021-05-27 19:07 | NUR ---
PT RECEIVED 1 UNIT OF PLATELETS. HAD ERCP THIS SHIFT. SOB NOTED. RT SCHEDULED TREATMENT PROVIDED.
[2021-05-27 20:39] LABS: ABSOLUTE NEUTROPHILS 5.6 thou/uL (1.4-8.2)
[2021-05-27 20:40] LABS: ANISOCYTOSIS 3+; PLATELET ESTIMATE DECREASED; POIKILOCYTOSIS 1+; POLYCHROMASIA 1+
[2021-05-28 03:31] VITALS: BP 121/65
[2021-05-28 04:51] LABS: INR 1.51; PROTIME 16.1 Seconds (10.5-12.1)
[2021-05-28 05:14] LABS: HEMATOCRIT 23.8 % (37.0-47.0); MCH 26.6 pg (26.0-34.0); MCHC 33.5 g/dL (28.0-37.0); MCV 79.4 fL (80.0-100.0); RDW 25.8 % (10.5-14.5); WBC 5.7 thou/uL (4.0-11.0)
[2021-05-28 05:25] LABS: ALBUMIN 1.9 g/dL (3.4-5.0); CALCIUM 7.7 mg/dL (8.5-10.1); CREATININE 0.9 mg/dL (0.6-1.0); PHOSPHORUS 2.3 mg/dL (2.5-4.9); POTASSIUM 3.8 mmol/L (3.5-5.1); TOTAL BILIRUBIN 5.1 mg/dL (0.2-1.0); TOTAL PROTEIN 5.3 g/dL (6.4-8.2)
[2021-05-28 08:00] VITALS: BP 97/70
--- NOTE | 2021-05-28 11:33 | HC ---
[facility] [place] [address] CONSULTATION Name: OLIVIA BRADLEY Room #: 218-P ADM IN M.R.#: [id number] Admission: 05/23/21 Attend Phys: Keira Jack MD Discharge: Date of : 39 Report #: [id number] THIS REPORT FOR: cc: Lucio Peraza MD, Rene P. MD Barry, Joseph W. MD ~ DATE OF SERVICE: 05/27/2021 INFECTIOUS DISEASE CONSULTATION ATTENDING PHYSICIAN: Dr. Jack. REASON FOR EVALUATION: Nosocomial fevers. HISTORY OF PRESENT ILLNESS: Chart reviewed and the patient examined. This is an 81-year-old woman with fairly extensive medical history including cirrhosis, who was admitted on with abdominal pain, had some nausea and emesis. It is not clear if she had preadmission fevers. She notes her appetite has been somewhat diminished, although she has been eating. Denied any weight loss. Evaluation was undertaken. Chest x-ray raised question of pneumonitis, has required supplemental oxygen at 3 liters per nasal cannula. Blood cultures collected at time of admission were sterile thus far. She has had progressive anemia as well as thrombocytopenia as well. She was in acute kidney injury and had lactic acidemia. Currently, she complains of bilateral leg, pretty much to the extent of the limbs very weak, quite painful and swollen. Does have lower quadrant pain as well, in particular on the right. Over the course of last 24 hours, has evidence of fevers. It is not entirely clear to her as to the etiology. She states she did appreciate their presence and was noted to be somewhat more tachycardic. He had been empirically started on Zosyn, vancomycin, Levaquin have just been added. On questioning, she denies significant head and neck complaints, although does admit to chronic sinus issues. She states she has poor teeth. No sore throat. Denies any particular exposure history at this point. ALLERGIES: MORPHINE AND CODEINE. CURRENT MEDICATIONS: Include vancomycin, Levaquin, budesonide, ipratropium/albuterol inhaler, midodrine, Zosyn. PAST MEDICAL HISTORY: Includes cirrhosis, felt to be on the basis of excess ethanol. She has subsequently quit drinking. Reflux, arthritis, bilateral cataracts, depression, chronic anemia, hypothyroidism, restless legs. SOCIAL HISTORY: She is . No tobacco use, no illicit drug use. FAMILY HISTORY: Noncontributory. [facility] [address] [facility] [place] [address] CONSULTATION Name: OLIVIA BRADLEY Room #: 218-P [facility] IN .R.#: [id number] Admission: 05/23/21 Attend Phys: Keira Jack MD Discharge: Date of : 39 Report #: [id number] REVIEW OF SYSTEMS: Otherwise, unremarkable. PHYSICAL EXAMINATION: GENERAL: She appears chronically ill, undernourished. She is somewhat stoic, I suspect depressed. She is pale, mild to moderate distress. HEENT: Normocephalic. Extraocular muscles intact. NECK: Supple. LUNGS: Bilateral scattered coarse breath sounds. HEART: Regular, borderline tachycardic. I do not appreciate a murmur. ABDOMEN: Some tenderness in the lower quadrant. There are no overt peritoneal signs. GENITOURINARY AND RECTAL: Deferred. EXTREMITIES: Lower extremities have edema that is not palpably tender, to be involving the muscles. No apparent arthritis or synovitis. LABORATORY DATA: Followup chest x-ray showed bilateral perihilar and upper lung interstitial pneumonitis. Sputum culture, no growth, moderate PMNs, rare gram-positive cocci. CBC: White count of 6.2, H and H 7.8 and 23.2, platelets of 49. Electrolytes: Sodium 139, potassium 3.6, chloride 107, bicarbonate is 22, anion gap of 10, BUN and creatinine 13 and 1.1, glucose of 106. Total bilirubin of 2.5. Hepatic transaminases normal range. Albumin 2.1. Total protein of 5.2. ASSESSMENT AND PLAN: Nosocomial related fevers without clear evidence of source at this point, certainly apparently has pneumonitis, evidence of improved lactic acidosis, progressive anemia and thrombocytopenia. This could be drug related, in fact cannot exclude entirely a drug-related fever either. We will discontinue the Zosyn. I think it is worthwhile pursuing a lower spinal evaluation given the bilateral nature of the limb issues. This could be occult process there. We will check sinus and teeth x-rays as well. At this point, she is not overtly toxic. ____ clinically over the course of next 24-48 hours on the antibiotic adjusted regimen. <ELECTRONICALLY SIGNED> By: Brian Bess MD 05/28/21 1133 1430 19 Brian Bess MD /nt
[2021-05-28 11:42] VITALS: BP 114/57
[2021-05-28 15:30] VITALS: BP 124/65
[2021-05-28 19:18] VITALS: BP 116/55
--- NOTE | 2021-05-28 20:02 | NUR ---
PT IS AXOX4, FLAT AFFECT. VSS, AFEBRILE, SR ON THE MONITOR. PT C/O PAIN IN ABDOMEN. PT HAD ECRP ON 05/28 WITH ONE (1) GALL STONE REMOVED. DR GRANT CONSULTED, DR CARVAJAL CONSULTED. RECOMMENDED LAP RACHELLE, BUT NO DATE FOR PROCEDURE AT THIS TIME. MRI OF SPINE THIS AM PER DR CHAUDHARY ORDER. PT HAS DISCITIS; NO NEW ORDERS PER DR CHAUDHARY PT IS ON ABX THERAPY. DR WEST CONSULTED; NEW CONSULT FOR NEUROSURGERY. POC IS TO CONTINUE PAIN MGMT WITH POSS LAP RACHELLE. FALL PRECAUTIONS IN PLACE. NO CONCERNS AT THIS TIME.
[2021-05-29 00:15] VITALS: BP 133/55
--- NOTE | 2021-05-29 02:42 | NUR ---
ASSESSED AT START OF SHIFT. PT RESTING IN BED. ON 3L OF O2. PT ON FULL LIQUID DIET. FENTALYN GIVEN FOR ABD PAIN. PT INCONTINENT AND EXT CATH IN PLACE. FALL PREC IN PLACE AND CALL LIGHT AT REACH NO FURTHER SIGNS OF DISCOMFORT WILL CONT TO MONITOR.
[2021-05-29 04:45] VITALS: BP 116/57
[2021-05-29 07:00] LABS: CALCIUM 7.8 mg/dL (8.5-10.1); PHOSPHORUS 2.4 mg/dL (2.5-4.9); POTASSIUM 3.9 mmol/L (3.5-5.1)
[2021-05-29 07:46] VITALS: BP 116/58
[2021-05-29 10:22] LABS: ALBUMIN 1.5 g/dL (3.4-5.0); CALCIUM 6.8 mg/dL (8.5-10.1); TOTAL BILIRUBIN 5.2 mg/dL (0.2-1.0); TOTAL PROTEIN 4.3 g/dL (6.4-8.2)
--- NOTE | 2021-05-29 10:40 | P ---
[facility] [place] [address] PROCEDURE REPORT Name: OLIVIA BRADLEY Room #: 218-P ADM IN M.R.#: [id number] Admission: 05/23/21 Attend Phys: Keira Jack MD Discharge: Date of : 39 Report #: [id number] THIS REPORT FOR: cc: Lucio Peraza MD, Rene P. MD McElhinney, Christian C. MD ~ cc: Keira Jack MD, Aguila Roman MD, Galileo Corado MD, ____ DATE OF SERVICE: 05/27/2021 PROCEDURE PERFORMED: ERCP with sphincterotomy, stone removal. HISTORY OF PRESENT ILLNESS: The patient is an 81-year-old female who was admitted with abdominal pain. She has a known history of cirrhosis. She was noted to have elevated liver function tests on admission and having right upper quadrant abdominal pain. A CT scan of the abdomen and pelvis was performed on 05/23/2021, which showed changes of cirrhosis again, splenomegaly, gallbladder distended with gallbladder sludge, extrahepatic common bile duct now markedly distended, marked edema was present involving the pancreas consistent with pancreatitis. She then underwent an MRI with MRCP, also showing gallstones within the gallbladder. Extrahepatic common bile duct measures 8 mm. There was a filling defect near the distal common bile duct suggesting choledocholithiasis. The patient's lipase on admission was greater than 30,000 on the , and on the , it was ____. She is feeling better. Her liver function test shows a bilirubin of 2.5 today, yesterday was 1.6. The high bilirubin was 2.9 on the . AST 35, ALT 29, alkaline phosphatase 45. Today, WBC 6.2, hemoglobin was 7.8, platelet count was 49,000. Her INR is 1.4. She has been on IV antibiotics. Plan is for ERCP. DESCRIPTION OF PROCEDURE: The risks and benefits of the procedure were explained to the patient, those risks including but not limited to bleeding, perforation and the risk of sedation as well as the potential risk for posterior pancreatitis. She understood these risks and gave informed consent. The patient was given a 10 pack of platelets prior to the procedure. She was also given Levaquin prior to the procedure. The procedure was performed in the operating room under general anesthesia. A 50 mg indomethacin rectal suppository was given prior to the procedure as well. Next, using a standard side-viewing Olympus ERCP scope, the scope was placed in the patient's mouth and advanced under direct vision through the esophagus, stomach and into the second portion of the duodenum. As I advanced the scope into the stomach, there appeared to be some bright red blood noted within the gastric fundus. This was difficult to visualize with a side-viewing scope, but there did not appear to be significant bleeding. The major papilla was normal and somewhat small in size. Next, using a Tom-Cook 0.025 dome tipped sphincterotome catheter, initially the pancreatic duct was cannulated. It was somewhat difficult, but eventually I [facility] [address] [place] [address] PROCEDURE REPORT Name: MIRNAOLIVIA Room #: 218-P ADM IN M.R.#: [id number] Admission: 05/23/21 Attend Phys: Keira Jack MD Discharge: Date of : 39 Report #: [id number] was able to cannulate the common bile duct and a cholangiogram was obtained. There appeared to be a small filling defect in the mid upper portion of the common bile duct. The intrahepatic ducts appeared normal. At this point, a guidewire was advanced into the intrahepatic ducts and a sphincterotomy was performed without difficulty. Next, I then performed several balloon sweeps although I did not see the stone actually pass after balloon sweeps. I did perform several balloon occlusion cholangiogram after the balloon sweeps and no further filling defects were noted. Of note, the gallbladder did not fill completely, but the cystic duct did fill. The common bile duct was mildly dilated to approximately 8-10 mm. The pancreatic duct initially was normal in appearance. At this point, the scope was then brought back up into the patient's stomach. There was some old blood noted in the stomach. Again, I was using a side-viewing scope at this point; therefore, the side-viewing scope was removed, and I then proceeded with an upper endoscopy using a standard Olympus upper endoscope. The esophagus was normal. There was no evidence of bleeding or varices. Upon entering a small to medium size hiatal hernia, there was evidence of a mucosal tear with a blood clot in this area. It was small. It was not bleeding. No other abnormalities were noted. The area appeared to be stable. At this point, I then withdrew the scope and the procedure was terminated. The patient tolerated the procedure well. IMPRESSION: 1. Likely filling defect on cholangiogram, status post ERCP with sphincterotomy and multiple balloon sweeps, no further filling defect noted after balloon sweeps. 2. Cystic duct did fill. 3. Mucosal tear, likely trauma from ERCP scope passing through the hiatal hernia area. There was a clot in this area, but no further active bleeding was noted. RECOMMENDATIONS: 1. Observe the patient post-procedure. 2. Continue to monitor liver function test. 3. We will start clear liquid diet tonight as tolerated. 4. We would consider laparoscopic cholecystectomy in the future. Thank you for allowing me to participate in her care. <ELECTRONICALLY SIGNED> By: Timo Odell MD 05/29/21 1040 [id number] [id number] Timo Odell MD /nt
[2021-05-29 14:50] VITALS: BP 118/55
--- NOTE | 2021-05-29 16:57 | NUR ---
anticipate no weekend dc. Patient with neuro consulted. Patient accepted to acute rehab once stable. Accepted to [facility].
[2021-05-29 19:25] VITALS: BP 133/61
[2021-05-30 00:09] LABS: HIV ANTIBODY Non Reactive (Non Reactive)
[2021-05-30 04:57] VITALS: BP 116/57
[2021-05-30 04:59] LABS: ALBUMIN 1.8 g/dL (3.4-5.0); CALCIUM 7.9 mg/dL (8.5-10.1); CREATININE 1.1 mg/dL (0.6-1.0); PHOSPHORUS 2.5 mg/dL (2.5-4.9); TOTAL BILIRUBIN 4.7 mg/dL (0.2-1.0); TOTAL PROTEIN 5.2 g/dL (6.4-8.2)
[2021-05-30 05:05] LABS: POTASSIUM 4.2 mmol/L (3.5-5.1)
--- NOTE | 2021-05-30 05:13 | NUR ---
PT IS ALERT AND ORINETED X4. LUNGS ARE COARSE TO DIMINISHED. ON 1 LITER OF OXYGEN. ON LIQUIDS DIET. PURE WICK BAZAN CATH. MICK AREA IS RED AND ZYINC CREAM APPLIED TO AREA DUE TO REDNESS OF MICK AREA. DENIES ANY PAIN ISSUES. SCDS ON BILATERAL SWOLLEN LEGS NOTED 2-3 PLUS NOTED. CALL LIGHT WITHIN REACH IF NEEDS ASISTANCE PER CARE.
[2021-05-30 07:25] VITALS: BP 122/64
[2021-05-30 07:28] VITALS: BP 115/57
[2021-05-30 15:55] VITALS: BP 113/50
[2021-05-30 19:23] VITALS: BP 101/44
[2021-05-31 00:04] VITALS: BP 100/44
[2021-05-31 04:00] VITALS: BP 105/43
[2021-05-31 04:54] LABS: ALBUMIN 1.7 g/dL (3.4-5.0); CREATININE 1.3 mg/dL (0.6-1.0); PHOSPHORUS 2.9 mg/dL (2.6-4.7); POTASSIUM 4.9 mmol/L (3.5-5.1)
--- NOTE | 2021-05-31 07:08 | NUR ---
ASSUMED CARE OF PT AT 1900. PT ASSESSED TO BE AOX3 81F PRESENTING WITH PANCREATITIS. THROUGHOUT THE NIGHT PT RESTED QUIETLY IN BED WITH FEW COMPLAINTS, VSS. PT WAS CLEANED UP TWICE FOR LOOSE BMS AND IS VERY EXCORIATED IN THE PERIAREA - APPLIED NYSTATIN AND BARRIER CREAM. CONCERNED ABOUT MARIN PICC SITE IT HAS BRUISING UNDERNEATH AND WARN RASH DISTALLY TO THE ELBOW. WAS NOT COMMUNICATED IN REPORT AND WAS NOT MENTIONED IN RECENT NOTES. PRESENT AT START OF SHIFT, TALKED OVER WITH GLASS SCIENCE ENGINEER AND LABORER/KEY MAN LAVON. FLUSHES AND DRAWS FINE, WILL RUN AM VANCO AND CONT TO MONITOR. WILL HAVE IV TEAM COME ASSESS. RETAINED URINE THROUGHOUT THE NIGHT AND SCANNED FOR 420 MLS IN AM. OBTAINED 1X STR CATH ORDER FROM LABORER/KEY MAN AND HAD 600 OUT PER CATH. MAINTAINS OXYGEN ON 2L, BP SOFT AT 100S. RUNS SR AND PAIN CONTROLLED WITH FENTANYLX1. WILL CONT TO MONITOR.
[2021-05-31 08:45] VITALS: BP 109/52
--- NOTE | 2021-05-31 11:05 | NUR ---
Spoke with patient's and gave update
[2021-05-31 12:20] VITALS: BP 111/48
[2021-05-31 12:50] LABS: ALBUMIN 1.9 g/dL (3.4-5.0); DIRECT BILIRUBIN 2.4 mg/dL (<0.1-0.2); TOTAL BILIRUBIN 3.4 mg/dL (0.2-1.0); TOTAL PROTEIN 5.2 g/dL (6.4-8.2)
[2021-05-31 16:51] VITALS: BP 111/47
[2021-05-31 20:55] VITALS: BP 126/45
[2021-06-01] VITALS (7 sets, daily range): BP systolic 98–1110; BP diastolic 46–67
[2021-06-01 08:34] LABS: ALBUMIN 1.7 g/dL (3.4-5.0); CALCIUM 7.9 mg/dL (8.5-10.1); CREATININE 1.5 mg/dL (0.6-1.0); PHOSPHORUS 3.4 mg/dL (2.6-4.7); POTASSIUM 4.5 mmol/L (3.5-5.1)
[2021-06-01 10:29] LABS: HEMATOCRIT 24.9 % (37.0-47.0); HEMOGLOBIN 8.1 gm/dL (12.0-15.0); MCH 26.4 pg (26.0-34.0); MCHC 32.5 g/dL (28.0-37.0); MCV 81.3 fL (80.0-100.0); PLATELET COUNT 148 thou/uL (150-400); RBC 3.06 mil/uL (4.20-5.00); RDW 27.1 % (10.5-14.5); WBC 11.8 thou/uL (4.0-11.0)
--- NOTE | 2021-06-01 11:30 | 2DMMODE ---
[facility] [place] [address] 2 D/M-MODE ECHOCARDIOGRAM Name: OLIVIA BRADLEY Room #: 218-P ADM IN M.R.#: [id number] Admission: 05/23/21 Attend Phys: Keira Jack MD Discharge: Date of : 39 Report #: [id number] THIS REPORT FOR: cc: Lucio Peraza MD, Rene P. MD Santiago, Patrick MD [facility] ~ APPROVED REPORT Study performed: 06/01/2021 11:34:52 EXAM: Comprehensive 2D, Doppler, and color-flow Echocardiogram Patient Location: Bedside Room #: 218 Status: routine BSA: 1.85 HR: 90 bpm BP: 110/52 mmHg Rhythm: NSR Other Information Study Quality: Good Indications CHF. 2D Dimensions IVSd: 10.30 (7-11mm) LVOT Diam: 19.91 (18-24mm) LVDd: 54.29 mm PWd: 10.07 (7-11mm) Ascending Ao: 32.29 (22-36mm) LVDs: 34.23 (25-40mm) Left Atrium: 41.15 (27-40mm) Aortic Root: 29.66 mm Volumes Left Atrial Volume (Systole) Single Plane 4CH: 57.66 mL Single Plane 2CH: 61.47 mL LA ESV Index: 34.00 mL/m2 Aortic Valve AoV Peak Minesh.: 1.97 m/s AO Peak Gr.: 15.56 mmHg LVOT Max P.96 mmHg LVOT Max V: 1.41 m/s ALEXIA Vmax: 2.23 cm2 [facility] [address] [place] [address] 2 D/M-MODE ECHOCARDIOGRAM Name: OLIVIA BRADLEY Room #: 218-P [facility] IN .R.#: [id number] Admission: 05/23/21 Attend Phys: Joseph Cheng Discharge: Date of : 39 Report #: [id number] Mitral Valve E/A Ratio: 0.8 MV Decel. Time: 294.63 ms MV E Max Minesh.: 1.11 m/s MV A Minesh.: 1.32 m/s MV PHT: 85.44 ms IVRT: 57.67 ms Pulmonary Valve PV Peak Minesh.: 1.40 m/s PV Peak Gr.: 7.89 mmHg Pulmonary Vein P Vein S: 0.87 m/s P Vein D: 0.38 m/s P Vein S/D Ratio: 2.29 Tricuspid Valve TR Peak Minesh.: 2.27 m/s RAP Estimate: 5.00 mmHg TR Peak Gr.: 21.00 mmHg PA Pressure: 26.00 mmHg Left Ventricle The left ventricle is normal size. There is normal LV segmental wall motion. There is normal left ventricular wall thickness. Left ventricular systolic function is normal. LVEF is 55%. Mild diastolic dysfunction is present (impaired relaxation pattern). Right Ventricle The right ventricle is normal size. The right ventricular systolic function is normal. Atria Left atrium is mildly dilated. The right atrium size is normal. Aortic Valve Aortic valve is trileaflet; mildly sclerotic. No aortic regurgitation is present. There is no aortic valvular stenosis. Mitral Valve Moderate to severe mitral annular calcification. Trace mitral regurgitation. Borderline mild mitral stenosis (mean pressure gradient of 4mmHg). Tricuspid Valve The tricuspid valve is normal in structure. Trace tricuspid [facility] [address] [place] [address] 2 D/M-MODE ECHOCARDIOGRAM Name: OLIVIA BRADLEY Room #: 218-P ADM IN .R.#: [id number] Admission: 05/23/21 Attend Phys: Joseph Cheng Discharge: Date of : 39 Report #: [id number] regurgitation. Estimated PAP is 26mmHg. Pulmonic Valve The pulmonary valve is normal in structure. Trace pulmonic regurgitation. Great Vessels The aortic root is normal in size. The ascending aorta is normal in size. IVC is normal in size and collapses >50% with inspiration. Pericardium There is no pericardial effusion. <Conclusion> Normal left ventricle size/wall thickness Ejection fraction 55% Normal right ventricle size/function Mild left atrial enlargement Mild aortic valve sclerosis without stenosis Mild mitral annular calcification Mild mitral valve stenosis mean gradient of 4 mmHg Trace tricuspid valve insufficiency Pulmonary systolic pressure estimated at 26 mmHg No pericardial effusion Normal aortic root size l <ELECTRONICALLY SIGNED> By: Benja Perez MD, FACC 06/01/21 1130 29 29 Benja Perez MD, FACC /INF
[2021-06-01 11:42] LABS: ABSOLUTE NEUTROPHILS 9.1 thou/uL (1.4-8.2); ATYPICAL LYMPHS 1 %; METAMYELOCYTES 2 %
--- NOTE | 2021-06-01 21:57 | NUR ---
PATIENT CARES WHERE ASSUMED AT SHIFT CHANGE. PATIENT WAS ASSESSED AND MEDS WHERE PASSED. TROUGH DONE TODAY AROUND 1800 CAME BACK AT 24. HER CREATININE LEVEL IS 1.5. AFTER THE PATIENT MADE AWEAR OF THIS THE PATIENT REQUESTED TO HOLD OFF TILL MIDNIGHT. THERAPEUTIC LEVEL IS 15 TO 20. THIS PUSH BACK ON TIME IS TO NOT DISTROY HER KIDNEYS.. 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 SHE IS AWEAR OF HER SITUATION. SHE QUESTIONS WHY A MRI HAS NOT BEEN DONE. SHE IS UNDER THE IMPRESSION THAT A DOCTOR ORDERED THIS TODAY. ADVISED PATIENT I WOULD LOOK INTO THIS FOR AN ANSWER. ROUNDS WHERE DONE. THE BED IS IN A LOW AND LOCKED POSITION.
--- NOTE | 2021-06-02 04:18 | NUR ---
PT TRANSFERRED TO ROOM 453 FROM [facility]. PT IS A/O X4 AND IS ON 2 LITERS 02 NC. SR ON THE MONITOR. VSS AFEBRILE. MAINTANCE FLUID INFUSING. ABX GIVEN THIS NOC. C/O DIFFICULTY SWALLING AND DRAINAGE FROM THROAT WITH A LOOSE COUGH. TICKETING AGENT NOTIFIED. ORDERS GIVEN. HOOKED UP SUCTION TO ALLOW PT TO SELF SUCTION NEEDED. FALL PRECUATIONS IN PLACE, CALL LIGHT IS WITHIN REACH. WILL CONTINUE TO MONITOR. PT CALLS OUT APPROPRIATELY FOR ASSISTANCE. PT IS PLEASANT AND COOPERATIVE BUT APPEARS FATIGUED AND IS IN AND OUT ON ALERTNESS. PT STATES SHE IS AWARE SHE IS DOING IT BUT CANT STOP IT. WILL CONTINUE TO MONITOR. SCHEDULED BRTX GIVEN DIRECTED.
[2021-06-02 06:18] LABS: CALCIUM 7.9 mg/dL (8.5-10.1); CREATININE 1.4 mg/dL (0.6-1.0); POTASSIUM 4.2 mmol/L (3.5-5.1)
[2021-06-02 07:20] VITALS: BP 110/45
[2021-06-02 10:57] LABS: HEMATOCRIT 23.4 % (37.0-47.0); HEMOGLOBIN 7.4 gm/dL (12.0-15.0); MCH 26.2 pg (26.0-34.0); MCHC 31.7 g/dL (28.0-37.0); MCV 82.6 fL (80.0-100.0); PLATELET COUNT 147 thou/uL (150-400); RBC 2.83 mil/uL (4.20-5.00); RDW 27.4 % (10.5-14.5); WBC 11.2 thou/uL (4.0-11.0)
[2021-06-02 11:42] LABS: ABSOLUTE NEUTROPHILS 9.6 thou/uL (1.4-8.2); METAMYELOCYTES 1 %
--- NOTE | 2021-06-02 11:42 | NUR ---
Spoke with [facility] continue to accept patient for acute rehab once stable.
[2021-06-02 11:43] LABS: ANISOCYTOSIS 3+; HYPOCHROMASIA 1+; PLATELET ESTIMATE DECREASED
[2021-06-02 12:17] VITALS: BP 106/53
[2021-06-02 15:18] VITALS: BP 113/57
--- NOTE | 2021-06-02 16:14 | NUR ---
[facility] SUBMITTED FOR INSURANCE AUTH. AWAITING AUTH FOR ACUTE REHAB. PT'S FAMILY IS AWARE. CM FOLLOWING .
--- NOTE | 2021-06-02 17:24 | NUR ---
AUTHORIZATION FOR ACUTE REHAB REQUESTED THIS DATE FROM [employer] AND CLINICAL INFORMATION SENT. WILL AWAIT INSURANCE RESPONSE.
--- NOTE | 2021-06-02 18:28 | NUR ---
PT ALERT AND ORIENTED. UP IN THE CHAIR THIS SHIFT. SOB NOTED WITH ACTIVITY. PLAN TO BE DISCHARGE TO [address] [place] [address] REHAB UNIT. WAITING FOR INSURANCE AUTHORIZATION. PT PROGRESSING WELL TOWARDS DISCHARGE GOAL.
[2021-06-02 19:41] VITALS: BP 111/56
[2021-06-03 00:18] VITALS: BP 99/52
[2021-06-03 04:31] VITALS: BP 109/51
[2021-06-03 07:00] VITALS: BP 108/54; BP 143/72
[2021-06-03 07:28] LABS: HEMATOCRIT 21.7 % (37.0-47.0); HEMOGLOBIN 7.2 gm/dL (12.0-15.0); MCH 26.8 pg (26.0-34.0); MCV 81.2 fL (80.0-100.0); RBC 2.67 mil/uL (4.20-5.00); RDW 27.4 % (10.5-14.5)
--- NOTE | 2021-06-03 07:49 | NUR ---
Pt. rested quietly at intervals during the night when checked on during frequent rounds. Incontinent of a large brown loose stools. Sandy care given. She offers no c/o pain or discomfort. Bed alarm is on.
[2021-06-03 07:55] LABS: CALCIUM 7.7 mg/dL (8.5-10.1); CREATININE 1.4 mg/dL (0.6-1.0); MAGNESIUM 1.7 mg/dL (1.8-2.4); POTASSIUM 3.7 mmol/L (3.5-5.1)
[2021-06-03 11:00] VITALS: BP 109/57
--- NOTE | 2021-06-03 13:07 | NUR ---
AUTHORIZATION FOR ACUTE REHAB STAY WAS INITIALLY DENIED, BUT PEER TO PEER COMPLETED THIS DATE AND DECISION REVERSED. SPOKE WITH KEVIN (WITH [facility]) AFTER PEER TO PEER WHO STATED THAT AUTH WAS [employer]. AUTH NUMBER [id number]. PATIENT IS NOT MEDICALLY READY TO COME TO REHAB THIS DATE. PER KEVIN OK TO BRING PATIENT BEFORE JUN 10 (NOT ON JUN 10). AUTHORIZATION FROM 06/03 TO LAST COVERED DAY OF 06/09/21. UPDATE DUE JUNE 10. FAX INFORMATION TO [phone]. PICCOLO MECHANIC IS SHARDA AND CAN BE REACHED BY PHONE AT [phone].
--- NOTE | 2021-06-03 14:05 | NUR ---
INSURANCE HAD DENIED AUTH FOR [facility]. DR. ARGUELLES CALLED PEER TO PEER AND THEY GAVE AUTH FOR ADMISSION. CM NOTIFIED PT AND HER SISTER AT BEDSIDE OF THIS. GI SAW PT AND THEY ARE PLANNING TO DO EGD AND DILATION ON TUESDAY. IT IS ANTICIPATED THAT PT COULD DC TO [facility] POST PROCEDURE IF MEDICALLY STABLE. CM FOLLOWING REGARDING DC PLANNING. ANTICIPATED POSSIBLE DC TO [facility] TUESDAY.
--- NOTE | 2021-06-03 14:11 | NUR ---
ASSUMED PT CARE THIS AM. PT A&OX4, ABLE TO MAKE NEEDS KNOWN. PATIENT REPORTING NO PAIN. PATIENT ON 2 LITERS OF OXYGEN VIA NC. PATIENT HAD ONE CONTIENT STOOL THIS SHIFT. PATIENT HAS WHEEZES NOTED IN THE LEFT UPPER QUADRANT OF LUNGS, PHYSICIAN MADE AWARE. MRI CALLED PER DR. CHAUDHARY'S REQUEST AND MESSAGE LEFT TO CALL UNIT BACK REGARDING MRI ORDERED BUT NOT COMPLETED FOR SEVERAL DAYS. IV REMAINS PATENT. MEDICATIONS TAKEN WITHOUT ISSUE. FALL PRECAUTIONS ARE IN PLACE, CALL LIGHT WITHIN REACH.
[2021-06-03 16:00] VITALS: BP 110/43
[2021-06-03 19:24] VITALS: BP 108/43
[2021-06-04] VITALS (8 sets, daily range): BP systolic 106–131; BP diastolic 29–55
--- NOTE | 2021-06-04 04:30 | NUR ---
CARE ASSUMED AT PATIENT WAS UP IN THE CHAIR. PAIN CONTROLLED THIS SHIFT.PATIENT CALM AND COOPERATIVE WITH CARE AND MEDS. PATIENT NEEDS MINIMUM ASSISTANCE WITH ADL, BED MOBILITY, TRANSFER AND TOILETING. FALL PRECAUTION IN PLACE. PATIENT IN BED ASLEEP AT THIS TIME BREATHING REGULAR AND UNLABOURED.
[2021-06-04 06:04] LABS: HEMATOCRIT 20.2 % (37.0-47.0); HEMOGLOBIN 6.9 gm/dL (12.0-15.0); MCV 81.1 fL (80.0-100.0); RBC 2.49 mil/uL (4.20-5.00)
[2021-06-04 06:07] LABS: MCH 27.6 pg (26.0-34.0); MCHC 34.1 g/dL (28.0-37.0); RDW 27.1 % (10.5-14.5); WBC 6.9 thou/uL (4.0-11.0)
[2021-06-04 06:38] LABS: CALCIUM 7.9 mg/dL (8.5-10.1); CREATININE 1.4 mg/dL (0.6-1.0); MAGNESIUM 1.9 mg/dL (1.8-2.4); POTASSIUM 3.5 mmol/L (3.5-5.1)
--- NOTE | 2021-06-04 11:59 | NUR ---
ASSUMED PT CARE THIS AM. PT A&OX4, ABLE TO MAKE NEEDS KNOWN. PATIENT WITH A BAZAN CATHETER IN PLACE, DRAINING DARK YELLOW URINE. PATIENT TO RECEIVE A BLOOD TRANSFUSION THIS SHIFT. PATIENT ON 2 LITERS OF OXYGEN VIA NC. PICC TO MARIN REMAINS PATENT. FALL PRECAUTIONS ARE IN PLACE, CALL LIGHT WITHIN REACH.
[2021-06-04 16:55] LABS: HEMATOCRIT 25.2 % (37.0-47.0); HEMOGLOBIN 8.4 gm/dL (12.0-15.0)
[2021-06-05 04:30] VITALS: BP 134/105
--- NOTE | 2021-06-05 06:02 | NUR ---
ASSUMED CARE AT 1900 PT LAYING COMFORTABLE, REPORT PAIN, MEDICATION ADMINISTERED PER REQUEST, CALL LIGHT WITHIN REACH, NO ADVERSE REACTION, COMPLIANT TO TX, WILL CONTINUE TO MONITOR.
[2021-06-05 07:52] VITALS: BP 103/58
[2021-06-05 08:02] LABS: HEMATOCRIT 26.7 % (37.0-47.0); MCH 27.8 pg (26.0-34.0); MCHC 33.9 g/dL (28.0-37.0); MCV 82.1 fL (80.0-100.0); RBC 3.25 mil/uL (4.20-5.00); RDW 24.3 % (10.5-14.5); WBC 6.7 thou/uL (4.0-11.0)
[2021-06-05 08:09] LABS: CREATININE 1.4 mg/dL (0.6-1.0); MAGNESIUM 1.7 mg/dL (1.8-2.4); POTASSIUM 3.8 mmol/L (3.5-5.1)
--- NOTE | 2021-06-05 08:55 | NUR ---
Assumed pt care at 7am. Pt in bed sleeping with o2 on. Pt left for procedure at 0835 per bed accompanied by family and operating room rns.
--- NOTE | 2021-06-05 13:50 | HC ---
[facility] [place] [address] CONSULTATION Name: OLIVIA BRADLEY Room #: 453-P ADM IN M.R.#: [id number] Admission: 05/23/21 Attend Phys: Keira Jack MD Discharge: Date of : 39 Report #: [id number] THIS REPORT FOR: cc: Lucio Peraza MD, Rene P. MD Smithson, David G. MD ~ HISTORY OF PRESENT ILLNESS: The patient is an 81-year-old white female admitted with abdominal pain, was noted to have acute gallstone pancreatitis with severe pain, developed septic shock and acute hypoxic respiratory failure secondary to sepsis with a stay in the intensive care unit. She was noted to have acute on chronic renal insufficiency, which has improved. 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 We are seeing her in rehabilitation medicine consultation. PAST MEDICAL HISTORY: Prior right ankle ORIF in 2016, history of ETOH abuse with last drink in 2016, history of Raynaud's, T12 compression fracture with kyphoplasty, esophageal varices, restless leg syndrome. MEDICATIONS: Please see the full medication listing. ALLERGIES: CODEINE AND MORPHINE. SOCIAL HISTORY: Lives in a house with her spouse, 2 steps in, uses a walker to get around. There are 3 children that are out of state. There is an involved sister. REVIEW OF SYSTEMS: Did not offer any current complaints of chest pain, shortness of breath or abdominal discomfort. She does have decreased range of motion and strength of the left shoulder with apparent rotator cuff involvement, which is premorbid. PHYSICAL EXAMINATION: GENERAL: She is a thin 81-year-old white female, in no obvious distress. Nasal prong O2 is in place. Currently on 3.5 liters. NEUROLOGIC: Facies appeared symmetric. She answers basic commands, although there is some latency in her responses. She has decreased range of motion of the left shoulder and abduction and forward flexion, which is premorbid. She has good range of motion of the right shoulder. Strength of the upper extremities is otherwise probably a grade 3+ to 4-/5. Lower extremities, no focal calf swelling with strength probably a grade 3+ to 4-/5. ASSESSMENT: An 81-year-old white female with the following problem list: 1. 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 [address] [address] CONSULTATION Name: OLIVIA BRADLEY Room #: 453-P [facility] IN .R.#: [id number] Admission: 05/23/21 Attend Phys: Keira Jack MD Discharge: Date of : 39 Report #: [id number] 2. Acute gallstone pancreatitis noted to be severe. 3. Acute hypoxic respiratory failure secondary to sepsis. 4. Acute on chronic renal insufficiency, which has improved. 5. Cirrhosis. 6. History of esophageal varices. 7. Past history of ETOH abuse. PLAN: PT and OT have been reordered and we will assess her functional level. We will be glad to follow along regarding her rehab therapy needs. Thank you for asking us to assist in this patient's care. <ELECTRONICALLY SIGNED> By: Jad Manrique MD 06/05/21 1350 [id number] Jad Manrique MD /nt
[2021-06-05 16:58] VITALS: BP 103/46
[2021-06-05 19:40] VITALS: BP 110/52
[2021-06-06 00:56] VITALS: BP 96/47
[2021-06-06 04:32] VITALS: BP 112/49
[2021-06-06 05:48] LABS: HEMOGLOBIN 8.3 gm/dL (12.0-15.0); MCHC 34.8 g/dL (28.0-37.0); MCV 83.3 fL (80.0-100.0); RBC 2.88 mil/uL (4.20-5.00); RDW 25.1 % (10.5-14.5); WBC 5.2 thou/uL (4.0-11.0)
[2021-06-06 06:01] LABS: CALCIUM 7.9 mg/dL (8.5-10.1); CREATININE 1.3 mg/dL (0.6-1.0); MAGNESIUM 1.7 mg/dL (1.8-2.4); POTASSIUM 3.7 mmol/L (3.5-5.1)
[2021-06-06 07:51] VITALS: BP 100/53
--- NOTE | 2021-06-06 10:27 | P ---
[facility] [place] [address] PROCEDURE REPORT Name: OLIVIA BRADLEY Room #: 453-P ADM IN M.R.#: [id number] Admission: 05/23/21 Attend Phys: Keira Jack MD Discharge: Date of : 39 Report #: [id number] THIS REPORT FOR: cc: Lucio Pearza MD, Rene P. MD McElhinney, Christian C. MD ~ cc: Edilberto Longoria MD, Brian Bess MD DATE OF SERVICE: 06/05/2021 PROCEDURE PERFORMED: Upper endoscopy with esophageal dilation. HISTORY OF PRESENT ILLNESS: The patient is an 81-year-old female who underwent an ERCP by myself on 05/27/2021 for elevated liver function tests, gallstone pancreatitis. Sphincterotomy was performed and a small stone was removed with balloon sweeps at that time. There was some bright red blood noted after passing the side-viewing ERCP scope. I then advanced a regular scope and a mucosal tear was noted in her hiatal hernia, likely from trauma from the ERCP scope. She denies any melanotic stools. Her hemoglobin has trended down over the last week. Yesterday, this dropped to 6.9 and she was transfused 1 unit. Her hemoglobin today is 9.0. She has also been complaining of dysphagia. She underwent a speech path evaluation and there was an abnormal video swallow noted on 06/02 showing slow transit time of food bolus across the upper esophagus. This may be from poor motility. Plan is for EGD today. DESCRIPTION OF PROCEDURE: The risks and benefits of the procedure were explained to the patient, those risks including but not limited to bleeding, perforation and the risk of sedation. She understood these risks and gave informed consent. Sedation was given using propofol per anesthesia. Next, using a standard Olympus upper endoscope, the scope was placed in the patient's mouth and advanced under direct vision through the esophagus, stomach, and into the second portion of the duodenum. The larynx was normal in appearance. There was possible mild narrowing of the upper esophagus. The scope passed through this area without difficulty. The mid and distal esophagus was somewhat tortuous, but otherwise normal. There was no evidence of esophageal varices or esophagitis. In the hiatal hernia, there was a mild erythematous area, likely recent area of mucosal tear from ERCP, which is healing well. No evidence of ulceration or tear at this time. No evidence of bleeding. Overall, there was a mild gastritis. No evidence of bleeding: I did not obtain biopsies today as her INR is 1.5. Her gastric antrum was normal. The pylorus was normal and patent. There were a few tiny 3 mm clean white based ulcers, superficial in the duodenal bulb. No evidence of bleeding. The first and second portion of the duodenum were normal. There was noted to be good bile flow and the second portion of the duodenum as well. The scope was then brought back up into the patient's stomach and a Savary guidewire was inserted through the scope, leaving the guidewire in place as the scope was then withdrawn. Next, a [place] [address] [address] PROCEDURE REPORT Name: OLIVIA BRADLEY Room #: 453-P [facility] IN M.R.#: [id number] Admission: 05/23/21 Attend Phys: Keira Jack MD Discharge: Date of : 39 Report #: [id number] Savary dilation of the esophagus was performed without difficulty. The wire and dilator removed. The scope was reintroduced into the patient's esophagus and stomach. There was a small mucosal tear in the proximal esophagus. No evidence of bleeding. No further dilations were performed. The scope was then withdrawn and the procedure terminated. The patient tolerated the procedure well. IMPRESSION: 1. Mild narrowing proximal esophagus, status post dilation. 2. Tortuous esophagus in general. 3. Previous mucosal tear and hiatal hernia is healing well. 4. Mild gastritis. 5. A few tiny ulcerations within the duodenal bulb. No evidence of bleeding throughout the exam today. RECOMMENDATIONS: 1. Continue PPI therapy. 2. Observe status post dilation. Thank you for allowing me to participate in her care. <ELECTRONICALLY SIGNED> By: Timo Odell MD 06/06/21 1027 [id number] Timo Odell MD /nt
[2021-06-06 11:52] VITALS: BP 107/57
[2021-06-06 17:03] VITALS: BP 110/63
--- NOTE | 2021-06-06 18:29 | NUR ---
Assumed pt care at 7am.Pt in bed sleeping on and off.Assessment completed.vss. Pt in bed for all meals. Fair appetite. Dr Longoria here.No new order noted. Family here to visit,updates given.Pt will wanted to know ahen she will transfer to rehab.[facility] called but no response .Pt will probably transfer to rehab in am or tuesday.No verbal c/o. Will continue to monitor.
[2021-06-06 20:00] VITALS: BP 98/44
[2021-06-07 07:45] VITALS: BP 102/44
--- NOTE | 2021-06-07 08:57 | NUR ---
PATIENT ALERT AND ORIENTED BUT NOTED PATIENT TALKING TO HERSELF THIS MORNING BUT EASILY REDIRECTED AND REORIENTED TO REALITY. PATIENT REQUIRES ASSISTANCE WITH MOVING BUT CAN TURN SELF. PATIENT C/O OF PAIN EARLY IN SHIFT AND GIVEN IVP MEDS WITH EXCELLENT RESULTS. PATIENT SLEPT MOST OF THE NOC. PLAN IS FOR PATIENT TO TRANSFER TO REHAB UNIT (ORDER IN [facility]).
[2021-06-07 12:04] LABS: HEMATOCRIT 25.7 % (37.0-47.0); HEMOGLOBIN 8.7 gm/dL (12.0-15.0); MCH 28.1 pg (26.0-34.0); MCHC 33.7 g/dL (28.0-37.0); MCV 83.4 fL (80.0-100.0); RBC 3.09 mil/uL (4.20-5.00); RDW 26.1 % (10.5-14.5); WBC 4.3 thou/uL (4.0-11.0)
[2021-06-07 13:35] VITALS: BP 108/58
--- NOTE | 2021-06-07 15:12 | NUR ---
[facility] FOLLOWING FOR ADMISSION TO REHAB WHEN MEDICALLY STABLE/READY. PATIENT TO HAVE ASPIRATION OF THE VERTEBRAL DISC COMPLETED PRIOR TO TRANSFER TO ACUTE REHAB. THIS PROCEDURE MAY TAKE PLACE TOMORROW 06/08/21. ACUTE REHAB TO CONTINUE TO FOLLOW.
[2021-06-07 20:10] VITALS: BP 101/50
[2021-06-07 23:58] VITALS: BP 104/53
--- NOTE | 2021-06-08 03:22 | NUR ---
PATIENT HAS BEEN ON BEDREST ALL SHIFT. SHE IS A/0X3. SHE REQUESTED TRAMADOL 50MG AT HS 2154 AND TOOK THIS WITH OTHER MEDS WHOLE WITH WATER. PT [facility] ORDERED. SHE IS TO HAVE A PROCEDURE THIS MORNING SOMETIME FOR ASPIRATION OF THE VERTEBRAL DISC AND THEN TO BE TRANSFERRED TO REHAB. PATIENT HAS BEEN PLEASANT AND COOPERATIVE. SHE IS ON 02 AT 2L. VSS. BED IN LOW POSITION AND BED ALARM IS ON. PATIENT IS ASSIST X 1 TO BSC. CONTINUING TO MONITOR.
[2021-06-08 04:25] VITALS: BP 103/50
[2021-06-08 07:24] VITALS: BP 120/52
--- NOTE | 2021-06-08 10:44 | NUR ---
Paged Dr. Longoria regarding patients diet ordered
[2021-06-08 11:38] VITALS: BP 105/52
--- NOTE | 2021-06-08 12:27 | NUR ---
Spoke with proofer, MRI is on hold. Spoke with IR tech to see what time procdure was expected. He stated he did not know but to keep her NPO
--- NOTE | 2021-06-08 14:34 | NUR ---
Patient left floor to go to IR for procedure.
--- NOTE | 2021-06-08 15:53 | NUR ---
PT HAD IR VETEBRAL DISC ASPIRATION THIS DAY. CARE TEAM INDICATED THAT PT WILL LIKELY BE MEDICALLY STABLE TO DC TO [facility] TOMORROW. CM FOLLOWING REGARDING DC PLANNING NEEDS.
[2021-06-08 16:30] VITALS: BP 106/53
--- NOTE | 2021-06-08 19:15 | NUR ---
Patient did well today. Went to IR for aspiration and biopsy of spine. Stable upon arrival and following. All questions and concerns were addressed
[2021-06-08 21:15] VITALS: BP 116/54
[2021-06-09 00:44] VITALS: BP 99/55
--- NOTE | 2021-06-09 03:23 | NUR ---
ASSUMED PT CARE THIS PM. PT WAS ALERT AND ORIENTED X4 EARLY THE SHIFT BUT BECAME CONFUSED AND TRIED TO GET OUT OF BED. PT IS CURRNETLY NPO. BAZAN IS IN PLACE. PT IS ON 2L OF O2 VIA NC. BAZAN IS IN PLACE. PT HAS 2 LUMEN PICC TO [place] WITH ABX INFUSING WITH NO ISSUES. NO VISIBLE SIGN OF DISTRESS WAS NOTED. FALL PRECAUTIONS IN PLACE. WILL CONTINUE TO MONITOR.
[2021-06-09 06:21] VITALS: BP 112/45
[2021-06-09 07:18] VITALS: BP 104/47
[2021-06-09] MEDS ORDERED: ULTRAM 50MG TAB50 MG PO (11:14)
[2021-06-09] MEDS ORDERED: IPRAT-ALBUT 0.5-3 ML INH (11:15)
[2021-06-09] MEDS ORDERED: PULMICORT0.5 MG/22 INH (11:15)
[2021-06-09] MEDS ORDERED: TYLENOL325 MG PO (11:15)
[2021-06-09] MEDS ORDERED: MIDODRINE HCL 55 M1 PO (11:15)
[2021-06-09] MEDS ORDERED: NYSTATIN-TRIAMC15 GM TOP (11:15)
[2021-06-09] MEDS ORDERED: MUCUS RLF DM E1 EACH PO (11:15)
[2021-06-09] MEDS ORDERED: MAG-AL PLUS SUS30 ML PO (11:15)
[2021-06-09] MEDS ORDERED: ARTIFICIAL TEA1 EACH OPHTHALMIC (11:15)
[2021-06-09] MEDS ORDERED: SIMETHICON CHEW80 M1 PO (11:15)
[2021-06-09] MEDS ORDERED: MEROPENEM-500 MG/50 IVPB (11:19)
[2021-06-09 11:30] VITALS: BP 101/52
--- NOTE | 2021-06-09 14:52 | NUR ---
PT RESTING COMFORTABLY IN CHAIR/BED. PT AFEBRILE, ADEQUATE UOP, NO BM, FAIR APPETITE. PLAN TO DC TO REHAB AT 1600 TODAY. RU-PICC IN PLACE AND FUNCTIONING WELL. PT AND FAMILY HAVE BEEN THOUROUGHLY UPDATED AND EDUCATED ON PT CONDITION AND POC. PT SLOWLY PROGRESSING TOWARDS POC.
[2021-06-09 15:45] VITALS: BP 101/52
--- NOTE | 2021-06-09 15:51 | NUR ---
CARE TEAM INDICATED THAT PT IS MEDICALLY STABLE TO DC TO [facility] THIS DAY. PT IS TO GO TO ROOM 503. PT AND SPOUSE ARE AWARE AND AGREEABLE. NURSE GIVEN NUMBER FOR REPORT. NO OTHER CM INTERVENTION INDICATED CASE CLOSED.
== END 2021-06-09 18:49 | DRG 871 ==
LOC: ER 04:36 → ICU 08:44 → EROBS 08:44 → 2N 08:44 → 4S 10:32 → 2N 05-24 01:11 → ICU 05-24 04:01 → 2N 05-26 22:21 → 4W 06-01 23:00
PROVIDERS: Emergency Medicine; Hospitalist; Internal Medicine; Internal Medicine Gastroenterology; Nurse Practitioner; Nurse Practitioner Family; Specialist; ADMIT Hospitalist; ATTEND Hospitalist
PROC: 05HY33Z Insertion of Infusion Device into Upper Vein, Percutaneous Approach (ICD-10-PCS; 2021-05-24)
PROC: BF10YZZ Fluoroscopy of Bile Ducts using Other Contrast (ICD-10-PCS; principal; 2021-05-27)
PROC: 30233R1 Transfusion of Nonautologous Platelets into Peripheral Vein, Percutaneous Approach (ICD-10-PCS; 2021-05-27)
PROC: 0FC98ZZ Extirpation of Matter from Common Bile Duct, Via Natural or Artificial Opening Endoscopic (ICD-10-PCS; 2021-05-27)
PROC: 30233N1 Transfusion of Nonautologous Red Blood Cells into Peripheral Vein, Percutaneous Approach (ICD-10-PCS; 2021-06-02)
PROC: 0D738ZZ Dilation of Lower Esophagus, Via Natural or Artificial Opening Endoscopic (ICD-10-PCS; 2021-06-05)
PROC: 0R9 Upper Joints, Drainage (ICD-10-PCS; 2021-06-08)
DX: A41.9 Sepsis, unspecified organism (principal); R65.21 Severe sepsis with septic shock; J96.01 Acute respiratory failure with hypoxia; K29.71 Gastritis, unspecified, with bleeding; K85.10 Biliary acute pancreatitis without necrosis or infection; M46.25 Osteomyelitis of vertebra, thoracolumbar region; E46 Unspecified protein-calorie malnutrition; N17.9 Acute kidney failure, unspecified; E87.0 Hyperosmolality and hypernatremia; G93.40 Encephalopathy, unspecified; K80.40 Calculus of bile duct with cholecystitis, unspecified, without obstruction; K70.30 Alcoholic cirrhosis of liver without ascites; M46.46 Discitis, unspecified, lumbar region; D69.6 Thrombocytopenia, unspecified; R74.01 Elevation of levels of liver transaminase levels; Z20.822 Contact with and (suspected) exposure to COVID-19; K21.9 Gastro-esophageal reflux disease without esophagitis; M19.90 Unspecified osteoarthritis, unspecified site; F32.9 Major depressive disorder, single episode, unspecified; E03.9 Hypothyroidism, unspecified; G25.81 Restless legs syndrome; K83.8 Other specified diseases of biliary tract; F03.90 Unspecified dementia, unspecified severity, without behavioral disturbance, psychotic disturbance, mood disturbance, and anxiety; E87.6 Hypokalemia; E83.39 Other disorders of phosphorus metabolism; N18.30 Chronic kidney disease, stage 3 unspecified; R53.81 Other malaise; D50.9 Iron deficiency anemia, unspecified; R13.10 Dysphagia, unspecified; K22.2 Esophageal obstruction; D63.8 Anemia in other chronic diseases classified elsewhere; K44.9 Diaphragmatic hernia without obstruction or gangrene; Z90.710 Acquired absence of both cervix and uterus; Z98.42 Cataract extraction status, left eye; Z98.41 Cataract extraction status, right eye; Z88.6 Allergy status to analgesic agent; Z82.49 Family history of ischemic heart disease and other diseases of the circulatory system; Z28.21 Immunization not carried out because of patient refusal
CPT/HCPCS: 10045; 10078; 10081; 10100; 27000; 50455; 62110; 62900; 70005

== ENCOUNTER 2021-06-03 14:56 | Inpatient (IN) | payer OTHER ==
[~2021-06-03] VITALS: Ht 157.5 cm; Wt 67.2 kg
[2021-06-09] MEDS ORDERED: ULTRAM 50MG TAB50 MG PO (11:14)
[2021-06-09] MEDS ORDERED: MIDODRINE HCL 55 M1 PO (11:15)
[2021-06-09] MEDS ORDERED: IPRAT-ALBUT 0.5-3 ML INH (11:15)
[2021-06-09] MEDS ORDERED: SIMETHICON CHEW80 M1 PO (11:15)
[2021-06-09] MEDS ORDERED: MUCUS RLF DM E1 EACH PO (11:15)
[2021-06-09] MEDS ORDERED: TYLENOL325 MG PO (11:15)
[2021-06-09] MEDS ORDERED: PULMICORT0.5 MG/22 INH (11:15)
[2021-06-09] MEDS ORDERED: ARTIFICIAL TEA1 EACH OPHTHALMIC (11:15)
[2021-06-09] MEDS ORDERED: MAG-AL PLUS SUS30 ML PO (11:15)
[2021-06-09] MEDS ORDERED: NYSTATIN-TRIAMC15 GM TOP (11:15)
[2021-06-09] MEDS ORDERED: MEROPENEM-500 MG/50 IVPB (11:19)
[2021-06-09 19:54] VITALS: BP 107/53; BP 162/77
[2021-06-09 20:00] VITALS: BP 107/53
--- NOTE | 2021-06-10 00:32 | NUR ---
PT ADMITTED THIS EVENING FROM THE 4TH FLOOR. PT ALERT AND ABLE TO ANSWER QUESTIONS EARLY DURING THE EVENING. PT TALKS IN HER SLEEP AND IS RESTLESS. PLEASANT. SAT WNL ON NC. LARGE LOOSE BROWM BM AT HS. IMPULSIVE. PT CONFUSED AT TIMES. ASST WITH REPOSITION FOR COMFORT. FUNGAL GROIN. FUNGAL BARRIER CREAM APPLIED. ADMIT AND HX COMPLETED. SLEEPING WELL AT THIS TIME. WILL CONTINUE TO MONITOR FREQUENTLY.
[2021-06-10 05:50] LABS: HEMATOCRIT 25.5 % (37.0-47.0); HEMOGLOBIN 8.6 gm/dL (12.0-15.0); MCH 28.2 pg (26.0-34.0); MCHC 33.8 g/dL (28.0-37.0); MCV 83.4 fL (80.0-100.0); RBC 3.06 mil/uL (4.20-5.00); RDW 25.2 % (10.5-14.5); WBC 3.5 thou/uL (4.0-11.0)
[2021-06-10 06:05] LABS: CREATININE 1.1 mg/dL (0.6-1.0); POTASSIUM 3.4 mmol/L (3.5-5.1)
[2021-06-10 06:25] VITALS: BP 126/78
[2021-06-10 07:15] VITALS: BP 113/57
--- NOTE | 2021-06-10 08:06 | NUR ---
chart review. New to acute rehab 06/09/21. Dx t12-l1 discitis osteomyelitis lumbar radiculopathy . 81 year old female who lives at home wit her spouse sunita. 2 steps to enter from front door or garage. Have flight for stair to bathroom to bather. Dme: cane, walker and wheelchair. Home health in the past. Had falls at home in the past. Children live out of state. Her sister linh lives here. pcp Dr Peraza. Will cont following as needed for dc needs.
--- NOTE | 2021-06-10 13:01 | NUR ---
Nutrition: pt tx to rehab dx discitis, lumbar radiculopathy. Acute admit for gallstone pancreatitis and S/P ERCP with sphincterotomy. S/P EGD with dilation on 06/05. PO intake has improved, eating 50-75% of meals on 2 gm Na, mech altered ground diet. Drinks Ensure BID. Weights variable, is on lasix. UBW 150-165#. Weights taken on unit, 146# and 174#. Request clarification. Hx ETOH abuse (quit 2015), cirrhosis. BM 06/10. Physician has indicated malnutrition-RD will defer. Consider low risk with interventions in place.
[2021-06-10 13:09] VITALS: BP 113/57
[2021-06-10 13:15] LABS: FOLIC ACID 6.7 ng/mL (8.6-58.9)
--- NOTE | 2021-06-10 18:37 | NUR ---
Assumed care from overnight shift this am. Client was in bed resting during this time. Client presented calm and cooperative. Client's was in room for most of the day to provide emotional support for client. Client had swallow evaluation done this morning- normal diet still present. Pulmon and spiritual consults also ordered. Client is on 2 liters nasal cannula, and currently has a wilkes in place to help with recurrent UTI and mobility. Nystatin cream applied to groin area to help with infection. Midline still in place for IV antibiotics, which client has tolerated well. General nausea has been present for client, which she addresses with antiacids. Client has been in wheelchair and in bed during this shift, and is one to two person assist. Last BM 06/10/21. No further concerns.
[2021-06-10 19:26] VITALS: BP 117/82
--- NOTE | 2021-06-11 | NUR ---
PT ALERT, CONFUSED. 02 ON AT 2L PER NC. BAZAN PATENT DRAINING DARK YELLOW URINE. RIGHT PICC LINE INTACT AND PATENT. PT TAKES MEDS CRUSHED IN APPLESAUCE WITHOUT DIFFICULTY. MICK-AREA RED, PICTURE TAKEN. NYSTATIN CREAM APPLIED ORDERED. PT C/O GENERALIZED PAIN. TYLENOL GIVEN. PT HAS NON-PRODUCTIVE COUGH. BED ALARM ON FOR SAFETY. PT CHECKED ON HOURLY ROUNDS.
[2021-06-11 08:00] VITALS: BP 116/52
--- NOTE | 2021-06-11 13:32 | NUR ---
CONSULT [id number] WAS COMPLETED TODAY BY THIS GATE SERVICES SUPERVISOR. SHE WAS NOT AVAILABLE YESTERDAY Teodoro WAS WORKING WITH HER IN HER ROOM.
[2021-06-11 19:49] VITALS: BP 106/43
--- NOTE | 2021-06-12 05:17 | NUR ---
06-11-21 CARE TRANSFERRED 1899. PT AAOX3, VSS, RR EVEN AND NONLABORED ON 2L, LUNGS RONCHI AND DIMINISHED, HT RR, ABD SOFT AND ACTIVE. PT BAZAN INTACT SMALL AMT OF DARK YELLOW URINE IN BAG. PT PRESENT RESTLESS BUT HAS BEEN COOPERATIVE DURING NURSING ASSESSMENT AND CARES. DURING MEDICATION ADMIN PT HAD NO DIFFICULTIES TAKING CRUSHED IN APPLESAUCE. PT BED WAS ADJUSTED FOR COMFORT. PT PAIN HAS BEEN MANAGED WITH PRN.
[2021-06-12 06:27] LABS: CALCIUM 8.2 mg/dL (8.5-10.1); CREATININE 1.3 mg/dL (0.6-1.0); POTASSIUM 3.4 mmol/L (3.5-5.1)
[2021-06-12 08:00] VITALS: BP 122/41
--- NOTE | 2021-06-12 09:11 | NUR ---
PT LYING IN BED AND IS TALKING TO HER SELF, PT VERY RESTLESS TO EXT. NOTICED TREMORS TO HANDS. PT HAS BAZAN TO DD WITH YELLOW URINE AND SEDIMENT. PT HAS CRACKLES TO RLL AND LLL WITH OXYGEN ON 2L NC. THERAPY IS WORRIED ABOUT PT DUE TO HER MENTAL STATUS AND TWITCHING TO EXT. PT DID TAKE MEDS CRUSHED IN APPLESAUCE WITHOUT ANY ISSUES.
[2021-06-12 10:07] LABS: HEMOGLOBIN 8.6 gm/dL (12.0-15.0); MCHC 33.1 g/dL (28.0-37.0); MCV 84.4 fL (80.0-100.0); RBC 3.08 mil/uL (4.20-5.00); RDW 25.8 % (10.5-14.5)
[2021-06-12 10:17] LABS: ALBUMIN 2.1 g/dL (3.4-5.0); DIRECT BILIRUBIN 1.2 mg/dL (<0.1-0.2); TOTAL BILIRUBIN 2.2 mg/dL (0.2-1.0); TOTAL PROTEIN 5.7 g/dL (6.4-8.2)
--- NOTE | 2021-06-12 10:43 | NUR ---
OBTAINED UA PER BAZAN AND ALSO LACTIC ACID FROM PICC LINE TO RT ARM.
[2021-06-12 12:29] LABS: URINE BLOOD 2+ (Negative); URINE CLARITY CLEAR; URINE COLOR YELLOW; URINE GLUCOSE-RANDOM* NEGATIVE (Negative); URINE KETONES 1+ (Negative); URINE NITRITE-REFLEX NEGATIVE (Negative); URINE PROTEIN (DIPSTICK) 1+ (Negative); URINE UROBILINOGEN 0.2 E.U./dl (0.2-1.0)
[2021-06-12 13:00] VITALS: BP 109/55
[2021-06-12 13:18] LABS: URINE LEUKOCYTES-REFLEX 3+ (Negative)
[2021-06-12 13:19] LABS: ICTOTEST (BILI CONFIRMATORY) Negative (Negative); URINE BILIRUBIN NEGATIVE (Negative)
[2021-06-12 13:50] LABS: CASTS None Seen /LPF (None Seen); SQUAMOUS 0-3 Few /LPF (0-3); URINE WBC-REFLEX >25 Many /HPF (0-5)
[2021-06-12 13:51] LABS: BACTERIA-REFLEX >30 Many /HPF (None Seen); CRYSTALS None Seen /LPF (None Seen); YEAST-REFLEX Present (None Seen)
--- NOTE | 2021-06-12 16:23 | NUR ---
PATIENT'S SISTER, COLT HAS REQUESTED THAT WE CALL OG, HER SON, WHO IS A MD, TO UPDATE HIM ON THE CHANGES IN HER MENTAL STATUS AND HER MOST RECENT TEST RESULTS. THIS WILL BE PASSED ON IN REPORT TO THE ONCOMING SHIFTS FOR TOMORROW'S AM ROUNDS.
--- NOTE | 2021-06-12 16:31 | NUR ---
Cont. following as needed for dc needs.
--- NOTE | 2021-06-12 16:39 | NUR ---
I have reviewed the documentation by BEATA RADFORD from 06/10/21 to 06/12/21 and I concur with it. LORETA LOPEZ
[2021-06-12 19:25] VITALS: BP 116/60
--- NOTE | 2021-06-13 05:55 | NUR ---
ASSUMED CARE AT 1930 OF 06/12. PATIENT IS RECEIVED IN BED, CONFUSED AND RESTLESS. ORIENTED TO SELF ONLY, CAN BE IMPULSIVE, BUT REDIRECTABLE. CONTINUES TO EXHIBIT INTERMITTENT TREMORS AND TWITCHES. PRN SEROQUEL ADMINISTERED TO MANAGE RESTLESSNESS. TOLERATED MEDICATIONS CRUSHED IN APPLE SAUCE. BAZAN TO DD, DRAINING YELLOW URINE WITH NOTED SEDIMENTS. BOTH DOES OF HS TRAZADONES ADMINISTERED. VITAL SIGNS ARE STABLE, REMAINED AFEBRILE THROUGHOUT NIGHT. PATIENT APPEARED TO STILL HAVE DIFFICULTY STAYING ASLEEP AT BEGINNING OF THE NIGHT, BUT AFTER HAVING A LARGE LOOSE BM IN THE BREAK OUT WORKER, PATIENT WAS ABLE TO SETTLE DOWN. PATIENT HAS BEEN RESTING AND SLEEPING IN BED. FALL PRECAUTIONS IN PLACE, FREQUENT OBSERVATION IMPLEMENTED. WILL CONTINUE TO MONITOR.
[2021-06-13 09:57] VITALS: BP 127/52
--- NOTE | 2021-06-13 10:28 | PLAN ---
[facility] [place] [address] REHAB UNIT PLAN OF CARE Name: OLIVIA BRADLEY Room #: 503-P ADM IN M.R.#: [id number] Admission: 06/09/21 Attend Phys: Jad Manrique MD Discharge: Date of : 39 Report #: [id number] THIS REPORT FOR: cc: Lucio Peraza MD, Rene P. MD Smithson,Jad Pelletier MD ~ PROGRESS NOTE/OVERALL PLAN OF CARE HISTORY OF PRESENT ILLNESS: The patient was seen in a virtual visit this morning along with nurse practitioner, Jo Ann Simpson. Please see the progress note. She has had a little more confusion. Labs are being checked including liver function tests with a history of cirrhosis as well as an ammonia level. Chest x-ray is also ordered. Medications are being reassessed with the hospitalist service involved. Functionally, she has been involved in therapies with transfers at a min assist level. Gait has been up to 54 feet with a front-wheeled walker. She does need assistance. In occupational therapy, lower body dressing has been mod assist with upper body dressing with min assist. In speech, she is noted to have [id number]-[id number] cognitive deficits with severe memory deficits. She is on a mechanical soft diet with thin liquids. ASSESSMENT: 1. Lumbar radiculopathy. 2. T12-L1 diskitis with osteomyelitis, suspected. 3. Medical complexity with generalized debilitation. 4. Acute gallstone pancreatitis. 5. Acute hypoxic respiratory failure with sepsis, improved. 6. Dysphagia, status post dilatation. 7. Acute renal insufficiency superimposed on chronic kidney disease. 8. Alcoholic cirrhosis. 9. History of esophageal varices. 10. History of ETOH abuse. 11. Thrombocytopenia. PLAN: The overall plan of care is based on the pre-admission screen and information garnered from therapy assessments. 1. Estimated length of stay is probably around 14 days. 2. Medical prognosis is reasonably good. 3. Anticipated interventions includes the interdisciplinary acute inpatient rehabilitation program. 4. Anticipated functional outcomes would be for the patient to become modified independent with transfers, mobility and ADLs to at least maximize her functional independence, so she can return back to the home setting. 5. Discharge destination would be back to the home setting where [place] [address] REHAB UNIT PLAN OF CARE Name: OLIVIA BRADLEY Room #: 503-P [facility] IN .R.#: [id number] Admission: 06/09/21 Attend Phys: Jad Manrique MD Discharge: Date of : 39 Report #: [id number] 6. Expected therapy by discipline includes PT, OT and speech 1 hour per day each 5 days a week throughout the duration of the acute inpatient rehabilitation stay. ADDENDUM: The patient's prognosis for significant practical improvement within a reasonable period of time appears good. Given the patient's complex medical condition and risk of further medical complication, rehabilitation services could not be safely provided at a lower level of care such as a [place] [facility] facility. <ELECTRONICALLY SIGNED> By: Jad Manrique MD 06/13/21 1028 1043 1111 Jad Manrique MD /nt
--- NOTE | 2021-06-13 11:16 | NUR ---
PATIENT CARE ASSUMED AT 0700, PATIENT IN BED AWAKE AND RESTLESS IN, ALERT TO SELF ONLY, CONFUSED, PATIENT REFUSED TO EAT BREAKFAST TOOK COUPLE OF BITE, DIET WAS CHANGED TO PUREED DIET AND 100% ASSIST WHILE SHE EAT DUE TO SWALLON , PATIENT TOOK NEDICATION CRUSHED WITH APPLESAUCE, BREATH SOUND CLEAR, PATIENT IS ON 2L NC, HR OF 99, B/P 127/52, 02 93% TEMP 97.6, SKIN INTACT, ACTIVE BOWEL SOUND WITH SOFT ABDOMEN, PATIENT HAS A BAZAN ON, AMBULATE ON A WHEEL/CHAIR, FAMILY VISITED AND GOT UPDATE, THEY REQUEST FOR A DOCTOR TO CALL THE PATIENT'S SON FOR UPDATE. FALL PRECATION IN PLACE. WILL CONTINUE TO MONITOR PATIENT FOR SAFETY.
--- NOTE | 2021-06-13 19:03 | NUR ---
DOCTOR CATIA WAS NOTIFIED ABOUT CALLING THE PATIENT'S SON FOR UPDATE AMD HER CONDITION
[2021-06-13 21:45] VITALS: BP 100/34
--- NOTE | 2021-06-14 01:15 | NUR ---
assumed care approx 1900 evening 06/13. pt lying in bed with head of bed elevated dozing off and on. 02 at 2L per n/c. wilkes to dd with concentrated yellow urine to bag. pt with tremors and twitching at times lying in bed and somewhat restless moving lower extremities sporadically. pt given hs Trazadone crushed in applesauce tolerating well. pt appears to be sleeping soundly at present. bed alarm on and call light in reach. will continue to monitor.
[2021-06-14 03:03] VITALS: BP 125/60
[2021-06-14 05:31] VITALS: BP 119/64
--- NOTE | 2021-06-14 05:47 | NUR ---
PT SLEPT WELL THROUGHOUT THE NIGHT WITH PT RECEIVING RESPIRATORY TREATMENT ONCE IN THE NIGHT. 02 AT 3L PER N/C AT PRESENT. PT TOOK BUSINESS AREA DIRECTOR MEDS CRUSHED WITH APPLESAUCE TOLERATING WELL.
[2021-06-14 07:39] VITALS: BP 119/46
--- NOTE | 2021-06-14 08:22 | NUR ---
PT IN BED THIS AM AND SLEEPY. PT ABLE TO EAT WITHOUT ANY ISSUES WITH SWALLOWING. PT TOOK MEDS CRUSHED WITH ENSURE PUDDING. PT DENIES ANY PAIN. PT HAS BAZAN TO DD, REDDNESS TO GROIN IS HEALING. PT STILL HAS PICC TO RT UPPER ARM.
--- NOTE | 2021-06-14 10:30 | NUR ---
VASCULAR ACCESS ROUNDING. THE TRIPLE LUMEN PICC IS NO LONGER NECESSARY THIS PATIENT IS NO LONGER ON IV ANTIBIOTICS. SPOKE TO THE [facility] VIDEO GAME PRODUCER AND REQUESTED A ORDER FOR REMOVAL WHEN THE MD ROUNDS TODAY-TO DECREASE THE RISK OF A CENTRAL LINE BLOOD STREAM INFECTION
[2021-06-14 12:54] VITALS: BP 151/85
[2021-06-14 13:09] LABS: HEMATOCRIT 25.9 % (37.0-47.0); HEMOGLOBIN 8.5 gm/dL (12.0-15.0); MCH 27.6 pg (26.0-34.0); MCHC 32.9 g/dL (28.0-37.0); MCV 83.9 fL (80.0-100.0); PLATELET COUNT 113 thou/uL (150-400); RBC 3.09 mil/uL (4.20-5.00); RDW 24.3 % (10.5-14.5); WBC 4.5 thou/uL (4.0-11.0)
[2021-06-14 13:17] LABS: CALCIUM 8.5 mg/dL (8.5-10.1); CREATININE 1.3 mg/dL (0.6-1.0); POTASSIUM 3.6 mmol/L (3.5-5.1)
[2021-06-14 13:56] LABS: ALBUMIN 2.2 g/dL (3.4-5.0); DIRECT BILIRUBIN 1.1 mg/dL (<0.1-0.2); TOTAL BILIRUBIN 1.8 mg/dL (0.2-1.0); TOTAL PROTEIN 5.9 g/dL (6.4-8.2)
[2021-06-14 15:04] LABS: ABSOLUTE NEUTROPHILS 2.8 thou/uL (1.4-8.2)
--- NOTE | 2021-06-14 15:37 | NUR ---
LEFT MESSAGE WITH INFECTION DR ABOUT URINE RESULTS AND NO ABX AT THIS TIME.
[2021-06-14 18:58] VITALS: BP 110/52
--- NOTE | 2021-06-14 23:11 | NUR ---
PT ASSESSMENT COMPLETED AND VSS. MEDS GIVEN ORDERED AND WELL TOLERATED. FALL PRECAUTIONS IN PLACE. AMMONIA LEVEL ELEVATED. RESULT CALLED TO [facility]. NO NEW ORDERS AT THIS TIME. ASST WITH REPOSITION FOR COMFORT. BAZAN DRAINING MODERATE AMOUNT OF URINE. SLEEPING WELL AT THIS TIME. WILL CONTINUE TO MONITOR FREQUENTLY.
[2021-06-15 06:21] VITALS: BP 108/59
[2021-06-15 07:11] VITALS: BP 100/42
--- NOTE | 2021-06-15 09:17 | NUR ---
PT SITTING UP IN W/C FOR BREAKFAST IN DINING ROOM WITH ST. PT LUNGS CLEAR, OXYGEN ON 3L NC. PT RT HAD IS SWOLLEN THIS AM. PT DENIES ANY PAIN. PT HAS BAZAN TO DD WITH SEDIMENT. PT TOOK MEDS THIS AM WHOLE IN PUDDING. PT PICC LINE TO [facility]. DR. COUCH SEEN PT EARLY THIS AM. PT APPEARS MORE ALERT THIS AM.
--- NOTE | 2021-06-15 10:30 | NUR ---
PT WAS IN SHOWER WITH OT AND NOTICED A RED RASH UNDER LEFT BREAST. ANTI-FUNGAL CREAM APPLIED TO AREA, PT STATED A CHICKEN GOT HER.
[2021-06-15 19:21] VITALS: BP 117/51
--- NOTE | 2021-06-15 23:04 | NUR ---
PT ASSESSMENT COMPLETED AND VSS. MEDS GIVEN ORDERED AND WELL TOLERATED. FALL PRECAUTIONS IN PLACE. BAZAN DRAINING MODERATE AMOUNT OF URINE. FUNGAL CREAM APPLIED ORDERED UNDER LEFT BREAST AND MICK AREA. ASST WITH REPOSITION FOR COMFORT. SLEEPING WELL. WILL CONTINUE TO MONITOR FREQUENTLY.
[2021-06-16 07:15] VITALS: BP 104/48
--- NOTE | 2021-06-16 09:12 | NUR ---
PT SITTING OUT IN DINING ROOM EATING BREAKFAST. PT HAS EXP WHEEZE TO LOWER LOBES BILATERAL. PT HAS NO ISSUES WITH TAKING MEDICATIONS CRUSHED IN APPLESAUCE. PT ALERT THIS AM AND ORIENTED TO PERSON AND PLACE. PT ABLE TO CLEAR HER THROAT WHILE EATING. PT ABLE TO FEED SELF. PT HAS BAZAN WITH YELLOW URINE AND SEDIMENT. CLAMPED BAZAN TO TRAIN BLADDER. PT DENIES ANY PAIN.
--- NOTE | 2021-06-16 12:54 | NUR ---
team meeting, recommendation. Tx for UTI, had to increase o2 to 3L/nc nursing will try to trapper down on oxygen. lower dressing moderate assist. Moderate sever cognitive and memory. Mech soft thin liquid, no straws. On IV antifungal. Dc 06/26 hh ( pt, ot, st, nursing), FWW. Assist with medication and finances. Medication are prepacked. is here during therapy, have training with therapy while he is here.
--- NOTE | 2021-06-16 14:59 | NUR ---
PT FINISHED WITH THERAPY AND TRIED TO WEAN HER OFF OXYGEN. PT STILL REQUIRES 3L NC WITH ACTIVITY.
--- NOTE | 2021-06-16 15:02 | NUR ---
UNCLAMPED BAZAN AT THIS TIME. PT DENIED ANY FEELINGS OF NEEDING TO VOID WHILE CLAMPED.
[2021-06-16 19:15] VITALS: BP 132/62
--- NOTE | 2021-06-17 02:58 | NUR ---
ASSUMED CARE AT 1900 OF 06/16. PATIENT IS A&OX4, CALM AND COOPERATIVE. FORGETFUL AT TIMES. NO TREMORS NOTED DURING ASSESSMENT. DENIES SHORTNESS OF BREATH, INTERMITTENT PRODUCTIVE COUGH PRESENT. CONTINUES ON OXYGEN VIA NASAL CANNULA, DECREASED TO 2L. O2Sat REMAINS >94%, WILL CONTINUE TO MONITOR. BAZAN TO DD, DRAINING YELLOW URINE WITH NOTED SEDIMENT. PERICARE PROVIDED AND NYSTATIN CREAM APPLIED TO AFFECTED AREA . PERIAREA/GROIN AND SKIN UNDER LEFT BREAST IS VERY RED AND VERY ITCHY PER PATIENT REPORTS. SLEEPING ON HOURLY ROUNDS, FALL PRECAUTIONS IN PLACE. CALL LIGHT WITHIN REACH, WILL CONTINUE TO MONITOR.
[2021-06-17 06:00] VITALS: BP 120/56
[2021-06-17 07:00] VITALS: BP 106/48
[2021-06-17 07:45] VITALS: BP 106/48
--- NOTE | 2021-06-17 13:02 | NUR ---
ASSUMED CARE OF PT AT 0700. PT A&OX4. PT TREMORS HAVE SUBSIDED. PT TOLERATING 2GM SALT GROUND DIET. PT UP WITH MIN ASSIST. PT GAIT STEADY. VS CHARTED. WILL CONTINUE TO MONITOR.
--- NOTE | 2021-06-17 17:15 | NUR ---
I have reviewed the documentation by JAY RADFORD from 06/15/21 to 06/17/21 and I concur with it. DIOGO GORDON
[2021-06-17 19:27] VITALS: BP 119/53
--- NOTE | 2021-06-18 02:24 | NUR ---
assumed care approx 1900 evening 06/17. pt sitting up in recliner at change of shift resting. pt alert and oriented x4, appropriate and cooperative. assisted pt to bathroom to void in toilet before hs. pt assisted into bed and appears to be sleeping soundly. bed alarm on and call light in reach. will continue to monitor.
[2021-06-18 07:20] VITALS: BP 116/48
[2021-06-18 08:00] VITALS: BP 116/48
--- NOTE | 2021-06-18 12:56 | NUR ---
Team meeting, recommendation: Moderate to severe cognition and memory. Diet [facility] soft, ground meat, thin liquids. SOA still requiring oxygen. [place] yesterday, bladder scan. continent b and b. Will need fww, Erika blkaely (pt,ot,st, nursing). Try aleah of oxygen if not will need rest and exercise prior to dc. DC on 06/26
--- NOTE | 2021-06-18 13:23 | NUR ---
ASSUMED C/O PT AT 0700. PT WILLINGLY WORKS WITH THERAPIES. TOLERATING 2GM CHOPPED SODIUM DIET. PT GAIT STEADY WITH CONTACT CHELY, SBA. VS CHARTED. NYSTATIN CREAM APPLIED TO MICK AREA AND UNDER L BREAST. WILL CONTNIUE TO MONITOR.
[2021-06-18 17:15] VITALS: BP 138/62
[2021-06-18 19:46] VITALS: BP 121/52
[2021-06-18 20:08] VITALS: BP 155/81
--- NOTE | 2021-06-18 20:57 | NUR ---
ASSUMED CARE OF PT AT 1915. PT IS A&OX4. IS 1L OF O2/NC. DENIES PAIN IN BACK AT THIS TIME. IS STABLE. IS UP WITH STANDBY ASSIST, GB, WALKER. FALL PRECAUTIONS & HOURLY ROUNDING CONTINUED THIS SHIFT. LABS & VITALS REVIEWED. PT REFUSED TO ON PJ & REQUESTED TO SLEEP IN CLOTHING D/T BEING COLD. NYSTATIN CONTINUE TO BE APPLIED TO MICK AREA & ZGUARD TO BUTTOCKS. PT IS ABLE TO TURN SELF IN BED. IS CURRENTLY ON THE COMMODE. THIS NURSE AT BEDSIDE. WILL CONTINUE TO MONITOR.
[2021-06-18 21:08] VITALS: BP 166/85
[2021-06-19 06:12] LABS: ABSOLUTE NEUTROPHILS 1.7 thou/uL (1.4-8.2); BASOPHILS 0.5 % (0.0-2.0); EOSINOPHILS 7.1 % (0.0-3.0); HEMATOCRIT 25.8 % (37.0-47.0); HEMOGLOBIN 8.4 gm/dL (12.0-15.0); LYMPHOCYTES 31.1 % (24.0-44.0); MCH 27.5 pg (26.0-34.0); MCHC 32.8 g/dL (28.0-37.0); MCV 83.9 fL (80.0-100.0); PLATELET COUNT 83 thou/uL (150-400); POLYS 49.3 % (36.0-66.0); RBC 3.07 mil/uL (4.20-5.00); WBC 3.5 thou/uL (4.0-11.0)
[2021-06-19 06:48] LABS: CALCIUM 8.1 mg/dL (8.5-10.1); CREATININE 0.9 mg/dL (0.6-1.0); MAGNESIUM 1.5 mg/dL (1.8-2.4); POTASSIUM 3.4 mmol/L (3.5-5.1)
[2021-06-19 07:00] VITALS: BP 108/41
--- NOTE | 2021-06-19 08:21 | NUR ---
ADM LACUTOSE 20G PER ORDERS, ALSO ADM KDUR 40MEQ PER LABS AND MAG. 400MG PO. PT ABLE TO TAKE MEDS IN PUDDING OR APPLESAUCE.
--- NOTE | 2021-06-19 08:32 | NUR ---
PT WORKING WITH THERAPY. PT RASH TO GROIN IS HEALING. PT HAS OXYGEN ON 2L NC. PT LUNGS CLEAR BILATERALY, PT TONGUE IS RED AND NOTICED BLOOD ON OJ CUP, PT SEEMS TO HAVE A CUT ON HER LIP. CHAPSTICK GIVEN TO PT FOR DRY LIPS. PT ABLE TO CARRY ON A CONVERSATION, EYES TRACKING WITH STAFF. PT PICC RT UPPER ARM. PT VOIDING AT THIS TIME WITHOUT ANY ISSUES. PT UP WITH WALKER AND W/C FOR LONG DISTANCES.
[2021-06-19 09:45] VITALS: BP 139/69
--- NOTE | 2021-06-19 09:48 | NUR ---
Chart review. Cont dcp for if needs arise. Anticipated DC 06/26 home with t[facility], [facility]. Spouse will assist with medication and finances. Will need to check if oxygen can be tapered off prior to dc if not will need rest/exercise from resp therapy.
--- NOTE | 2021-06-19 09:50 | NUR ---
DR. COUCH HERE AND SEEING PT. HE D/C FUNGAL IV ABX. HE STATED WE WILL KEEP PICC LINE AT THIS TIME.
--- NOTE | 2021-06-19 10:38 | NUR ---
PT COMPLAINED OF LOWER BACK OF PAIN 7 ON 1-10 SCALE, OFFERED TYLENOL SHE STATED IT DOESN'T WORK.
--- NOTE | 2021-06-19 10:43 | NUR ---
NOTIFIED ALEXEI TURNER ABOUT PT REFUSING TYLENOL PO.
--- NOTE | 2021-06-19 12:00 | NUR ---
PT WAS SITTING OUT IN DINING ROOM AND FELT NAUSEATED AND VOMITED. PT WAS PUT IN BED AT THIS TIME. AT BEDSIDE.
--- NOTE | 2021-06-19 12:28 | NUR ---
OFFERED PT ZOFRAN FOR NAUSEA. PT STATED SHE FELT BETTER AT THIS TIME, AND REFUSED ZOFRAN.
--- NOTE | 2021-06-19 16:25 | NUR ---
I have reviewed the documentation by BEATA RADFORD from 06/18/21 to 06/19/21 and I concur with it. LORETA LOPEZ
--- NOTE | 2021-06-19 17:54 | NUR ---
PT FEELS BETTER SINCE BEING NAUSEATED THIS AM. PT ALSO RECIEVED A HEATING PAD FOR HER BACK. PT STATED THAT HAS HELPED HER BACK PAIN, PT ALSO ENJOYING HER SUNNY ROZ WITH DINNER. PT DID EAT AT LEAST 50% OF DINNER WITHOUT N/V.
[2021-06-19 19:10] VITALS: BP 118/50
--- NOTE | 2021-06-20 00:02 | NUR ---
PT ALERT AND ORIENTED X 4. AMB TO BR WITH WALKER AND ASSIST X 1. 02 ON AT 1L PER NC CONT. RIGHT PICC LINE INTACT. PT TAKES MEDS IN APPLESAUCE WITHOUT DIFFICULTY. PT DENIES PAIN OR DISCOMFORT. NO NAUSEA OR VOMITING. BED ALARM ON FOR SAFETY. PT APPEARS TO BE SLEEPING ON HOURLY ROUNDS.
[2021-06-20 05:30] VITALS: BP 93/44
[2021-06-20 07:45] VITALS: BP 104/40
[2021-06-20 08:00] VITALS: BP 104/40
--- NOTE | 2021-06-20 10:53 | NUR ---
PT BREAKFAST TRAY WAS DELIVERED TO PT IN HER ROOM. THIS NURSE FOUND PT EATING UNATTENDED. THIS NURSE ASKED SCHOOL LUNCH MONITOR IF SHE HAD GIVEN PT HER TRAY. SCHOOL LUNCH MONITOR STATED THAT SHE DID NOT. THIS NURSE ASKED THERAPIES IF THEY HAD GIVEN PT HER TRAY. THERAPIES STATED THEY HAD NOT GIVEN PT HER TRAY. THIS NURSE DID NOT GIVE PT HER TRAY WELL. PT THEN ASKED FOR HOT TEA, THIS NURE WAS PRESENT WHILE PT WAS DRINKING HER HOT TEA. PT BEGAN TO CHOKE AND THEN HAD EMESIS. THIS NURSE SPOKE WITH SLennyT. CONCLUSION IS THAT SINCE PT WAS NOT SUPERVISED FOR BREAKFAST SHE DID NOT ALTERNATE SIPS AND BITES THEREFORE CAUSING CHOKING EPISODE WITH HOT TEA. WILL ASK FOR CXR.
[2021-06-20 19:30] VITALS: BP 131/53
--- NOTE | 2021-06-21 01:53 | NUR ---
assumed care approx 0 evening 06/20. pt sitting up in dining area at change of shift. pt c/o being cold so assisted pt into bed approx 1999. pt fell asleep early and woke up to take hs meds. pt stated she felt better after getting into bed. pt appears to be sleeping soundly. bed alarm on and call light in reach. will continue to monitor.
[2021-06-21 06:10] VITALS: BP 116/57
[2021-06-21 08:00] VITALS: BP 98/62
--- NOTE | 2021-06-21 08:31 | NUR ---
PT SITTING IN BED. PT DENIES ANY PAIN. PT LUNGS CLEAR AND ON ROOM AIR. PT DOES HAVE OCCATIONAL COUGH. PT TAKES MEDS CRUSHED IN APPLESAUCE. PT HAS PICC TO RT ARM. PT SAT 94% THIS AM WITH ROOM AIR. PT UP WITH WALKER AND STAND-BY ASSIST.
[2021-06-21 11:47] LABS: HEMATOCRIT 27.6 % (37.0-47.0); HEMOGLOBIN 9.3 gm/dL (12.0-15.0); MCH 28.2 pg (26.0-34.0); MCHC 33.7 g/dL (28.0-37.0); MCV 83.8 fL (80.0-100.0); RBC 3.3 mil/uL (4.20-5.00); WBC 6.1 thou/uL (4.0-11.0)
[2021-06-21 12:01] LABS: CALCIUM 8.4 mg/dL (8.5-10.1); CREATININE 1.1 mg/dL (0.6-1.0); MAGNESIUM 1.3 mg/dL (1.8-2.4)
[2021-06-21 19:54] VITALS: BP 122/48
--- NOTE | 2021-06-22 02:45 | NUR ---
ASSUMED CARE AT 1915 OF 06/21. PATIENT IS A&OX4, FORGETFUL AT TIMES. PICC LINE IN RIGHT UPPER ARM IS INTACT, PATENT WITH BLOOD RETURN. DRESSING IS CDI. MINIMAL ASSIST WITH TRANSFERS, USING GB AND WALKER. PATIENT DENIES PAIN OR SHORTNESS OF BREATH. FALL PRECAUTIONS IN PLACE, CALL LIGHT WITHIN REACH. WILL CONTINUE TO MONITOR.
[2021-06-22 07:00] VITALS: BP 119/45
--- NOTE | 2021-06-22 14:58 | NUR ---
Pt presents calm and pleasant during this shift. Pt oriented x4 during this time, with cooperative deameanor. Pt voiced moderate pain during assessment, with pain noted in back. PRN medications and scheduled medications provided for pain relief at this time, and resulted in partial pain relief and sleep respectively. No nausea or vomiting was noted during this shift. Client was continent during this shift and able to voice toileting needs. Cream applied to tonia area to help with fungal rash. Slight bruising on arms noted that has been present since admission. All other skin dry and intact. PICC line present in right upper arm. Leave picc line in per YUE Carter. Client was given all medications scheduled during this shift. All medications tolerated well without issue. Family called for client, and client spoke to family at this time. Client reported pleasant conversation. No further concerns at this time.
[2021-06-22 17:49] VITALS: BP 125/57
[2021-06-22 19:24] VITALS: BP 111/51
--- NOTE | 2021-06-23 05:18 | NUR ---
ASSUMED CARE AT 1930 OF 06/22. PATIENT IS A&OX4, FORGETFUL AT TIMES. DENIES SHORTNESS OF BREATH. REPORTS PAIN IN LOWER BACK, HEATING PAD IN PLACE AND PRN TYLENOL ADMINISTERED PER PATIENT REQUEST TO MANAGE PAIN. STAND BY ASSIST WITH TRANSFER AND AMBULATION, USING GB AND WALKER. ASSISTED WITH REPOSITIONING. FALL PRECAUTIONS IN PLACE, CALL LIGHT WITHIN REACH. WILL CONTINUE TO MONITOR.
[2021-06-23 07:00] VITALS: BP 113/49
--- NOTE | 2021-06-23 09:32 | NUR ---
VASCULAR ACCESS- THIS PATIENT IS NO LONGER ON IV MEDICATION- RECOMMEND REMOVAL OF PICC TO DECREASE RISK OF A CENTRAL LINE BLOOD STREAM INFECTION
--- NOTE | 2021-06-23 16:20 | NUR ---
Patient care resummed; patient resting comfortably in bed in a low-fowlers position with LE elevated. Patient has been calm, pleasent and cooperative today, participated in PT/OT/ST. Patient stated having a "fire" pain in her tounge, COLLISION WORKER examined and noted a ricks red tounge, cracked, and bleeding in areas. LINING CLEANER Emma was informed and evaluated the patient; Magic Mouth wash given to patient along side 650mg Tylenol. A&O*4 with intermittent confusion; lung sounds clear;unlabored; abdomen soft, nondistended with bowel sounds present*4. Patient has a heating pad on her back which is being monitiored. V/S present to be hypotensive 113/49, and O2 presents at 91% patient was removed from oxygen a few day ago. COLLISION WORKER monitioring O2 for drops below 90s. Will continue to monitor patient, fall precautions in place, with call light in reach.
--- NOTE | 2021-06-23 16:31 | NUR ---
Patient has a PICC line in the [facility] upper arm; double lumen; dressing dry/clean but is coming off on edges. RN came to unit 0930 to change dressing/possible removal of PICC. Informed RN we were waiting on orders from MD to move ahead with removal. Labs and blood cultures were removed from line today without issue; both lumens were flused today.
--- NOTE | 2021-06-23 17:43 | NUR ---
I have reviewed the documentation by JAY RADFORD from 06/23/21 to 06/23/21 and I concur with it. DIOGO GORDON
[2021-06-23 19:35] VITALS: BP 107/60
--- NOTE | 2021-06-24 00:10 | NUR ---
PT ALERT AND ORIENTED X 4, CONFUSED AT TIMES. AMB TO BR WITH WALKER AND ASSIST X 1 WITHOUT DIFFICULTY. PT DENIES PAIN OR DISCOMFORT. HEATING PAD TO BACK. PT HAS RED RASH ON BACK. LOTION APPLIED TO AREA AT HS. PT C/O SORENESS TO TONGUE. MAGIC MOUTHWASH GIVEN ORDERED. BED ALARM ON FOR SAFETY. PT CHECKED ON HOURLY ROUNDS.
[2021-06-24 09:57] VITALS: BP 110/54
--- NOTE | 2021-06-24 13:27 | NUR ---
AGREE WITH ASSESSMENT.
--- NOTE | 2021-06-24 14:55 | NUR ---
Patient care resummed; patient located in bed resting comfortably in a low-fowlers position. Patient has been pleasent and cooperative today. A&O*3 with intermittent confusion noted; Lung sounds clear with diminished bases-unlabored, Oxygen levels stable; Abdomen soft-nondistened, with bowel sounds present*4; VSS on room air; Tremors noted with BLE weakness when ambulating; Patient has a heating bad on her back for chronic back pain; Fungal rash to the tonia-area; tonia-care given and antifungal cream applied. Right upper extremity edema present, as well as Right lower extremity edema; Patient has a double lumen PICC to the right upper arm; dressing change completed today. No S/O distress present; will continue to monitior, fall precautions in place, with call light in reach.
[2021-06-24 20:00] VITALS: BP 108/57
--- NOTE | 2021-06-25 03:21 | NUR ---
ASSUMED CARE AT 2300 OF 06/24. PATIENT WAS RECEIVED SLEEPING IN BED, ON ROOM AIR, NO SIGNS OF DISTRESS. STAND BY ASSIST WITH TRANSFERS AND AMBULATION, USING GB AND WALKER TO GO VOID IN TOILET. HEATING PAD TO LOWER BACK WHILE IN BED. SLEEPING ON HOURLY ROUNDS. FALL PRECAUTIONS IN PLACE, CALL LIGHT WITHIN REACH. WILL CONTINUE TO MONITOR.
--- NOTE | 2021-06-25 13:07 | NUR ---
Team meeting, recommendation: Blood cultural, no growth so far. moderate cog and memory. Spouse going to assist with medication and finances. Diet upgraded to regular with thin liquid. Pills in applesauce. Spouse has worked with therapy training. Will need rest and exercise by resp therapy and noc o2 monitor. Possible needs home iv abx, need ID MD to make recommendation. dc 06/26 with Erika Hansen ( pt, ot, st, nursing) and [facility].
[2021-06-25 14:23] VITALS: BP 108/57
[2021-06-25 15:09] VITALS: BP 115/50
--- NOTE | 2021-06-25 15:47 | NUR ---
ASSUMED C/O PT AT 0700. PT WORKING WITH OT THIS AM. PT HEMMORRROIDS FLARING UP. HEMMORRHOID MEDICATION APPLIED PER ORDER. PT STATES SHE IS READY TO DC ON TUESDAY 06/26. PT GAIT STEADY WITH CANE BUT BENEFITS FROM SBA/CONTACT GUARD ASSIST. WILL CONTNIUE TO MONITOR
--- NOTE | 2021-06-25 16:51 | NUR ---
I have reviewed the documentation by BEATA RADFORD from 06/24/21 to 06/25/21 and I concur with it. LORETA LOPEZ
--- NOTE | 2021-06-25 19:27 | NUR ---
VS CHARTED. PT IS READY TO DC TOMORROW. TAKES PILLS WHOLE IN . TOLERATING CHOPPED DIET.
[2021-06-25 19:31] VITALS: BP 116/51
--- NOTE | 2021-06-25 22:52 | NUR ---
ASSUMED CARE OF PT AT 1945. PT IS A&OX4. IS ON ROOM AIR. IS ON O2 STUDY AT THIS TIME. RT CONTINUES TO FOLLOW. IS STABLE. DENIES PAIN AT THIS TIME. LIDOCANE PATCH REMOVED FROM LOWER BACK. IS ABLE TO TURN SELF IN BED. CONTINUES WITH THE NYSTATIN TO MICK AREA & PREPERATION H TO RECTAL AREA. IS UP WITH 1 ASSIST, GB, WALKER. FALL PRECATUIONS CONTINUED THIS SHIFT. IS KATHERINE TO TURN SELF IN BED. LABS & VITALS REVIEWED. PICC LINE REMOVED. TIP INTACT. CALL LIGHT WITHIN REACH. WILL CONTINUE TO MONITOR.
[2021-06-26 05:59] LABS: BASOPHILS 0.6 % (0.0-2.0); EOSINOPHILS 2.5 % (0.0-3.0); HEMATOCRIT 23.7 % (37.0-47.0); LYMPHOCYTES 23.8 % (24.0-44.0); MCH 28.7 pg (26.0-34.0); MCHC 33.7 g/dL (28.0-37.0); MCV 85.2 fL (80.0-100.0); MONOCYTES 8.7 % (1.0-8.0); PLATELET COUNT 75 thou/uL (150-400); POLYS 64.4 % (36.0-66.0); RBC 2.79 mil/uL (4.20-5.00); RDW 22.8 % (10.5-14.5); WBC 4.6 thou/uL (4.0-11.0)
[2021-06-26 06:23] LABS: CALCIUM 8.2 mg/dL (8.5-10.1); CREATININE 0.9 mg/dL (0.6-1.0); MAGNESIUM 1.3 mg/dL (1.8-2.4); POTASSIUM 3.9 mmol/L (3.5-5.1)
[2021-06-26 08:00] VITALS: BP 127/48
[2021-06-26] MEDS ORDERED: MIDODRINE HCL 55 M1 PO (09:31)
[2021-06-26] MEDS ORDERED: KLOR-CON M2020 MEQ PO (09:31)
[2021-06-26] MEDS ORDERED: PROTONIX40 M4 PO (09:31)
[2021-06-26] MEDS ORDERED: FOLIC ACID1 MG PO (09:31)
[2021-06-26] MEDS ORDERED: LACTULOSE20 GM/30 M PO (09:31)
[2021-06-26] MEDS ORDERED: LIDOCAINE1 EACH TRANSDERM (09:31)
[2021-06-26] MEDS ORDERED: MAGOX 400400 MG PO (09:31)
[2021-06-26] MEDS ORDERED: LASIX 20 MG TAB20 MG PO ×2 (09:33→10:20)
[2021-06-26] MEDS ORDERED: TRAZODONE HCL50 MG PO (09:34)
--- NOTE | 2021-06-26 11:00 | NUR ---
Pt is needing 1 l with act of o2 and the cont at hs. Cm was notified that she already dc home. riaz and tanya amador. Referral for home oxygen sent to [facility] and they declined, sent referral to [facility].
--- NOTE | 2021-06-26 11:04 | NUR ---
PT DISCHARGED HOME VIA PRIVATE VEHICLE WITH . STATES UNDERSTANDING OF DISCHARGE INSTRUCTIONS. HOME HEALTH SET UP FOR PATIENT.
[2021-06-29] MEDS ORDERED: KLOR-CON M2020 MEQ PO (15:27)
== END 2021-06-26 11:10 | disposition home health service (06) | DRG 551 ==
PROVIDERS: Hospitalist; Nurse Practitioner; Nurse Practitioner Family; ADMIT Physical Medicine & Rehabilitation; ATTEND Physical Medicine & Rehabilitation
DX: M54.16 Radiculopathy, lumbar region (principal); K85.10 Biliary acute pancreatitis without necrosis or infection; A41.9 Sepsis, unspecified organism; J96.01 Acute respiratory failure with hypoxia; G92.8 Other toxic encephalopathy; N17.9 Acute kidney failure, unspecified; M46.25 Osteomyelitis of vertebra, thoracolumbar region; E72.20 Disorder of urea cycle metabolism, unspecified; B37.0 Candidal stomatitis; K21.9 Gastro-esophageal reflux disease without esophagitis; M19.90 Unspecified osteoarthritis, unspecified site; F32.9 Major depressive disorder, single episode, unspecified; G25.81 Restless legs syndrome; E03.9 Hypothyroidism, unspecified; R53.81 Other malaise; N18.9 Chronic kidney disease, unspecified; D69.6 Thrombocytopenia, unspecified; R13.10 Dysphagia, unspecified; K70.30 Alcoholic cirrhosis of liver without ascites; E87.70 Fluid overload, unspecified; I95.9 Hypotension, unspecified; D63.8 Anemia in other chronic diseases classified elsewhere; E53.8 Deficiency of other specified B group vitamins; R41.0 Disorientation, unspecified; B37.9 Candidiasis, unspecified; E87.6 Hypokalemia; E83.42 Hypomagnesemia; Z88.6 Allergy status to analgesic agent; Z90.710 Acquired absence of both cervix and uterus; Z98.42 Cataract extraction status, left eye; Z98.41 Cataract extraction status, right eye
CPT/HCPCS: 10112